=== PATIENT | female | born 1965 | race Caucasian/White ===

== ENCOUNTER 2018-07-03 10:15 | Outpatient (CLI) | payer OTHER, SELFPAY ==
[2018-07-03 13:10] LABS: Abs Immature Grans 0.02 k/cumm (0.0-0.09); Absolute Basophil Count 0.01 k/cumm (0.0-0.2); Absolute Eosinophil Count 0.01 k/cumm (0.0-0.7); Absolute Lymphocyte Count 2.05 k/cumm (1.2-3.4); Absolute Monocyte Count 0.69 k/cumm (0.11-0.7); Absolute Neutrophil Count 4.98 k/cumm (1.2-6.7); Basophils % 0.1; Eosinophils % 0.1; HCT 40.4 % (36.0-46.0); HGB 13.1 g/dL (12.0-15.5); Immature Grans % 0.3; Lymphocytes % 26.4; Mean Corp. HGB Concentration 32.4 g/dL (32.0-36.0); Mean Corpuscular Hemoglobin 27.8 pg (27.0-33.0); Mean Corpuscular Volume 85.8 fL (80-95); Monocytes % 8.9; Neutrophils % 64.2; Platelet Count 348 x1000/uL (130-400); RBC 4.71 m/cumm (4.00-5.20); White Blood Cell Count 7.76 k/cumm (4.4-10.8)
[2018-07-03 13:35] LABS: ALT 35 U/L (12-78); AST 21 U/L (15-37); Albumin 3.7 g/dL (3.4-5.0); Alkaline Phosphatase 76 U/L (46-116); Anion Gap 9.2 mmol/L (3-11); BUN 12 mg/dL (7-18); Bilirubin, Total 0.8 mg/dL (0.2-1.0); CO2 27.8 mmol/L (21.0-32.0); Calcium 8.9 mg/dL (8.5-10.1); Chloride 103 mmol/L (98-107); Glucose 93 mg/dL (70-100); Potassium 4.6 mmol/L (3.5-5.1); Sodium 140 mmol/L (136-145); TSH (W/Ref FT4) 1.48 uIU/mL (0.358-3.74); Total Protein 7.4 g/dL (6.4-8.2)
== END 2018-07-03 10:35 ==
PROVIDERS: PCP Emergency Medicine; Visit Provider Internal Medicine
DX: D64.9 Anemia, unspecified (principal); R05 Cough; R00.0 Tachycardia, unspecified
CPT/HCPCS: 36415; 80053; 84443; 85025

== ENCOUNTER 2018-07-05 00:54 | Outpatient (CLI) | payer OTHER, SELFPAY ==
--- NOTE | 2018-07-05 07:59 | DI.RAD_ITS ---
SYMPTOMS/DIAGNOSIS: COUGH, R05 PA AND LATERAL CHEST: The lungs are well expanded and free of infiltrate. There is no pleural effusion. The heart is not enlarged. The hilar structures, mediastinum and tracheal air column are intact. A prominent dextrorotoscoliosis involving the mid and lower dorsal spine is incidentally noted. SUMMARY: There is no evidence of acute cardiopulmonary disease.
== END 2018-07-05 01:14 ==
PROVIDERS: PCP Emergency Medicine; Visit Provider Internal Medicine
DX: R05 Cough (principal)
CPT/HCPCS: 71046

== ENCOUNTER 2019-02-01 15:00 | Outpatient (CLI) | payer OTHER, SELFPAY ==
--- NOTE | 2019-02-01 15:15 | DI.RAD_ITS ---
SYMPTOMS/DIAGNOSIS: PERSISTENT, CHRONIC COUGH X 5 WEEKS, WORSENING, NONPRODUCTIVE, NONSMOKER, R05 PA AND LATERAL CHEST: The heart is normal in size. The lungs are clear. The mediastinal structures and pleura appear intact. Note is made of a biconvex thoracolumbar scoliosis. CONCLUSION: Normal chest.
== END 2019-02-01 15:20 ==
PROVIDERS: PCP Emergency Medicine; Visit Provider Family Medicine
DX: R05 Cough (principal)
CPT/HCPCS: 71046

== ENCOUNTER 2019-09-07 09:05 | Outpatient (REF) | payer OTHER, SELFPAY ==
--- NOTE | 2019-09-07 08:40 | PAPFT_PTH ---
PATIENT: Mirtha Gaona LOC: [facility] U#:[id number] AGE/SX: 54/F ROOM: RE09/07/[address]: ИВАН Cespedes : 1965 BED: DIS: 09/07/2019 SPEC #: [id number] RECD: 09/07/19 12:48 STATUS: DARREN REQ #: [id number] JACQUELINE: 09/07/19 08:[address]: Veronica Barriga DEPT: [facility] Cytology RECD BY: Traci Clay ENTERED: 09/07/19 12:48 SP TYPE: PAPFT SAMRA DR: Jagdeep Arriaza, Tissues: 1 - CX/ENDOCX FOR PAP SMEARS Procedures: PAP THIN PREP/UVM Screening HPV DNA PROBE Comments: [id number]
== END 2019-09-07 09:25 ==
LOC: LBN 09:05
PROVIDERS: PCP Emergency Medicine; Visit Provider Nurse Practitioner Family
DX: Z12.4 Encounter for screening for malignant neoplasm of cervix (principal)
CPT/HCPCS: 88142; 87624

== ENCOUNTER 2019-09-24 12:37 | Outpatient (CLI) | payer OTHER, SELFPAY ==
[2019-09-24 13:43] LABS: HCT 40.7 % (36.0-46.0); HGB 13.3 g/dL (12.0-15.5); Mean Corp. HGB Concentration 32.7 g/dL (32.0-36.0); Mean Corpuscular Hemoglobin 27.7 pg (27.0-33.0); Mean Corpuscular Volume 84.8 fL (80-95); Mean Platelet Volume 9.1 fL (8.0-11.0); Platelet Count 408 x1000/uL (130-400); RBC Distribution Width 14.3 % (11.7-14.6); White Blood Cell Count 11.39 k/cumm (4.4-10.8)
[2019-09-24 14:47] LABS: ESR 26 mm/hr (0-30)
[2019-09-25 14:48] LABS: C-Reactive Protein 1.14 mg/dL (0.0-0.3)
== END 2019-09-24 12:57 ==
PROVIDERS: PCP Emergency Medicine; Visit Provider Orthopaedic Surgery
DX: Z96.651 Presence of right artificial knee joint (principal); Z47.1 Aftercare following joint replacement surgery
CPT/HCPCS: 36415; 85027; 85652; 86140

== ENCOUNTER 2020-01-25 09:06 | Outpatient (CLI) | payer OTHER, SELFPAY ==
[2020-01-26 15:51] LABS: COVID-19 RT-PCR UVMMC Result Negative (Negative)
== END 2020-01-25 09:26 ==
PROVIDERS: PCP Emergency Medicine; Visit Provider Student in an Organized Health Care Education/Training Program
DX: Z11.59 Encounter for screening for other viral diseases (principal); Z01.818 Encounter for other preprocedural examination
CPT/HCPCS: U0003

== ENCOUNTER 2020-01-30 07:33 | Day surgery (SDC) | payer OTHER, SELFPAY ==
--- NOTE | 2020-01-29 22:20 | W.PREOPHP ---
Date of service: 01/30/20 Assessment and Plan Assessment and plan (1) Status post right knee replacement: Status: Chronic Assessment and plan: Plan: Patient's test for Covid-19 on 01/25/20 was negative. Reports she has remained in quarantine since being tested; denies any contact with COVID-19 positive persons. Educated patient on surgery covering surgical technique, recovery process, benefits and risks including but not limited to risk of infection, blood clot, damage to soft tissue/blood vessels/nerves in detail. After discussion patient gives verbal understanding of risks and elects to proceed with scheduling surgery. Patient had opportunity to have questions answered to their satisfaction. They will contact office if issues arise. Patient will continue to be scheduled for right knee arthroscopy with lysis of adhesions and manipulation under associated procedures with Dr. Bernard. Patient is interested in having a left knee injection at the same time. History of Present Illness Narrative: Ms. Gaona is a 54-year-old female presents for right knee arthroscopic synovectomy with manipulation and associated procedures. Patient is status post right total knee replacement approximately 5 years ago. Unfortunately, she has continued to have discomfort as well as restricted motion. Patient's work-up completed by [facility] was negative for signs of infection when tested via Synovasure; additionally, as per her previous orthopedic clinic notes no abnormalities were noted on bone scan. Due to her continued pain and restricted motion which limits her activity, she was offered surgical intervention and elected to proceed. Additionally, her left knee has been bothering her for numerous months. She has previously received a Depo-Medrol injection which did not provide relief. She is interested in an alternative knee injection today. Pertinent Surgical Information Denies any known cardiac or pulmonary issues. Denies any previous complications from anesthesia or surgery Review of Systems Cardiovascular Cardiovascular: Denies chest pain and Denies dyspnea Respiratory Respiratory: Denies cough and Denies dyspnea [facility] Medical History (Updated 01/24/20 @ 10:58 by Kylie Romeo RN) Allergic rhinitis (Chronic) Seasonal rhinoconjunctivitis Cervical herniated disc (Chronic 08/20/15) Herpes (Chronic 09/28/17) History of skin cancer (Acute) Hypothyroid (Chronic 08/09/16) Idiopathic scoliosis (Chronic) Migraine (Chronic) Obesity (Chronic) Psoriasis (Chronic) Seborrheic dermatitis of scalp (Chronic 08/21/18) Sleep apnea (Chronic 10/18/14) CPAP Surgical History Arthroplasty of knee 2004; lateral release and chondromalacia patella. 09/02/14; Total right knee Extraction of cataract (~2012) JAW SURGERY Ligation of fallopian tube Status post right knee replacement (Chronic 05/09/15) Family History (Updated 01/29/20 @ 10:15 by Haroon Arriola) Mother No problems noted. Father , 72 Diabetes Essential hypertension CAD (coronary artery disease) Heart disease Hyperlipidemia Sister Hyperlipidemia Brother No problems noted. Maternal Grandfather , 59 Essential hypertension Brain cancer Paternal Grandfather , 84 Diabetes Maternal Grandmother , 90 Essential hypertension Eye cancer Stroke Paternal Grandmother , 83 No problems noted. Son Asthma Daughter No problems noted. Social History (Updated 01/29/20 @ 10:14 by Haroon Arriola) Smoking/Tobacco Use Status: Never Second Hand Exposure: No Alcohol Intake: former Drug use: Never Substance use type: does not use Caregiver/Support person: No Household members: spouse Housing: house Communication Needs: None Do you need help understanding health information?: Never Pets and animals: No Sexually active: Yes Do you think of yourself as: straight/heterosexual Current gender identity: female What is your relationship status?: How often do you talk on the phone with friends or family?: three or more times per week How often do you get together with friends or relatives?: once per week How often do you attend taoism or cheondoism services?: 1-3 times per year Do you belong to any clubs or organized social groups?: no Panel score (0-1 are the most socially isolated patients): 2 What type of physical activity do you participate in: none Frequency: does not exercise Sada/Yarsani: Restoration Special sada needs: No Seatbelt use: always Drive intox or ride w/intox pick up and delivery driver: No Do you feel safe at home: Yes Do you feel safe in your relationship?: Yes History History 3 Para 2 Hx # Term Pregnancies Multiple births Hx # Pregnancies Ectopic pregnancies AB induced Hx Number of Living Children AB spontaneous Meds Home Medications and Allergies Home Medications Medication Instructions Recorded Confirmed Type cetirizine 10 mg tablet 10 mg PO HS PRN tab 07/03/18 01/24/20 History fluocinonide-emollient 0.05 % 1 applic TOPICAL DAILY PRN gm 09/07/19 01/24/20 History topical cream levothyroxine 50 mcg tablet 50 mcg PO DAILY #90 tab-cap 12/24/19 01/24/20 Rx sumatriptan succinate 100 mg tablet 100 mg PO PRN #27 tab-cap 12/24/19 01/24/20 Rx olopatadine 0.1 % eye drops 2 drp OPHTHALMIC DAILY PRN #1 drp 01/25/20 01/25/20 Rx acetaminophen 500 mg PO Q6H PRN #60 tab 01/30/20 Rx hydrocodone-acetaminophen 1 tab PO Q4H PRN #12 tab 01/30/20 Rx ibuprofen 600 mg PO TID PRN #60 tab 01/30/20 Rx Allergies Allergy/AdvReac Type Severity Reaction Status Date / Time erythromycin base Allergy Intermediate TROUBLE Verified 01/30/20 07:49 BREATHING hydromorphone HCl Allergy Intermediate HIVES Verified 01/30/20 07:49 [From Dilaudid] cephalexin Allergy Unknown Verified 01/30/20 07:49 chlordiazepoxide Allergy Unknown Verified 01/30/20 07:49 codeine phosphate Allergy Unknown HIVES Verified 01/30/20 07:49 [From Cheratussin AC] guaifenesin Allergy Unknown HIVES Verified 01/30/20 07:49 [From Cheratussin AC] morphine AdvReac Severe VOMITING Verified 01/30/20 07:49 WALNUTS Allergy Severe DIFFICULTY Uncoded 01/30/20 07:49 BREATHING Exam Const General: cooperative, healthy appearing and no acute distress Resp Effort & Inspection: normal respiratory effort, able to speak in complete sentences and no cough Auscultation: clear to auscultation bilaterally, no rales, no rhonchi and no wheezes Cardio Heart Sounds: S1 normal, S2 normal and no murmurs
--- NOTE | 2020-01-30 07:07 | W.PM.DSUDISC ---
Discharge Plan Disposition Patient Disposition: HOME Condition: Good Discharge Details Reason For Visit: ARTHROFIBROSIS (R) KNEE Attending Provider: Michel Bernard Primary Care Provider: Jagdeep Arriaza Home Meds and New Rx's Prescriptions: New hydrocodone-acetaminophen 5-325 mg tablet 1 tab PO Q4H PRN (Reason: pain) Qty: 12 RF: 0 acetaminophen 500 mg tablet 500 mg PO Q6H PRN (Reason: pain) Qty: 60 RF: 3 ibuprofen 600 mg tablet 600 mg PO TID PRNQty: 60 RF: 3 Continued cetirizine [Zyrtec] 10 mg tablet 10 mg PO HS PRNRF: 0 fluocinonide-emollient [Fluocinonide-E] 0.05 % cream 1 applic Topical DAILY PRNRF: 0 olopatadine 0.1 % drops 2 drp Ophthalmic DAILY PRN Qty: 1 RF: 2 sumatriptan succinate [Imitrex] 100 mg tablet 100 mg PO PRN Qty: 27 RF: 4 levothyroxine [Synthroid] 50 mcg tablet 50 mcg PO DAILY Qty: 90 RF: 3 No Action Advil Cold and Sinus 30-200 mg Capsule 2 cap PO RF: 0 Discharge Instructions Additional Instructions: You should call [facility] to set up PT appointment. Stand Alone Forms: [facility] Knee Arthroscopy Referrals: [facility] [Provider Group] (s/p arthroscopic synovectomy and manipulation. As Soon As Possible. Thanks.) Michel Bernard MD [ [facility] STAFF PHYSICIAN] - Equipment/Supplies: Partial Weight Bearing Crutches Activity:: Activity as Tolerated Remove Dressings/Wound Care:: 72 hours Shower/Bathe:: 72 hours Diet:: As Tolerated Discharge Orders Discharge Orders: Discharge Order (Routine); Ordered 01/30/20 Ordered By: Michel Bernard DS: Diagnosis Discharge Diagnosis (1) Status post right knee replacement: Status: Chronic
[2020-01-30] MEDS: Lactated Ringers 1,000 ML 80 ML IV (08:00)
[2020-01-30 08:26] VITALS: BP 127/70; PULSE 91; RESP 18; TEMP 36.5; O2SAT 96
[2020-01-30] MEDS: CLINDAMYCIN 600 MG/50 ML BAG 100 MG IVPB (09:31)
[2020-01-30] MEDS: Hylan G-F 20 48 MG/6 ML SYR IU (10:06)
[2020-01-30] MEDS: Bupivacaine 0.5% Pres-Free 30 ML VIAL (10:55)
[2020-01-30 11:35] VITALS: BP 111/72; PULSE 75; RESP 20; TEMP 36; O2SAT 100
[2020-01-30] MEDS: HYDROcodone 5/Acetaminophen 325 TAB PO (12:16)
[2020-01-30 12:43] VITALS: BP 121/68; PULSE 83; RESP 20; TEMP 36.2; O2SAT 98
--- NOTE | 2020-01-30 19:49 | ROE_ITS ---
Date of service: 01/30/20 Time of Service: 11:49 Operative Note Operative Note DATE OF PROCEDURE: 01/30/20 PRE-OP DIAGNOSIS: Right knee arthrofibrosis status post TKA, left knee osteoarthritis POST-OP DIAGNOSIS: same PROCEDURE: Right knee arthroscopic synovectomy, adhesiolysis, with manipulation and left knee injection SURGEON: Michel Bernard ANESTHESIA: spinal ESTIMATED BLOOD LOSS: 5 PATHOLOGY: none sent TOURNIQUET TIME: 0 COMPLICATIONS: None Patient was transported to: same day Patient's condition: stable Indications: I have seen Mirtha in clinic for some right knee pain with restricted motion after knee replacement. Infection work-up was negative. Bone scan was negative for suspected loosening. However, she had continued restrict ed motion and pain. Nonoperative measures were exhausted but disability and pain persisted. Given the restricted motion as a possible source of her pain, I offered an arthroscopic synovectomy with manipulation. I discussed the surgery in detail with the patient. I reviewed the risks of the procedure to include, but not limited to, bleeding, infection, pain, stiffness, damage to nerves or vessels, recurrence, blood clot. Despite these risks, the patient elected to proceed. Findings: A diagnostic arthroscopy was performed with the following findings: Suprapatellar Pouch: Notable inflammatory changes throughout, some scarring between the distal femur anteriorly and the undersurface of the quadriceps tendon, no loose bodies Medial Compartment: Notable scarring with interposition of synovium between the femur and polyethylene, and the interface between the metal tibia and bone was inspected and did not show any gross loosening Lateral Compartment: Notable scarring but no interposition on no gross loosening between the components and bone Patellofemoral Compartment: Significant scarring around the patella with some attachment of the patella to medial lateral synovium restricting motion, no apparent patellar maltracking Procedure Description: Mirtha was greeted in the preoperative holding area where the correct side was identified and marked. The consent was reviewed with the patient and signed. The history and physical was updated. All questions were answered. She was taken back to the operating room. A spinal anesthetic was administered. She was then placed into the supine position on the operating room table. All bony prominences were well padded. Prophylactic antibiotics in the form of clindamycin were administered. A timeout to confirm correct identity, side and site, procedure, allergies, anesthesia, and medical concerns was performed. The left knee was identified as the injection site. The superolateral border of the patella was identified and marked. The skin was prepped with alcohol. The knee joint was entered without difficulty and the injection, consisting of 48mg of Synvisc 1 and 4cc of 0.5% Bupivicaine, was injected without resistance. The patient tolerated the procedure well and the injection site was dressed with a Band-Aid. The right leg was then prepped with Chloraprep and draped in a standard fashion with stockinette and extremity drape. The leg was placed into a pneumatic leg quinonez, SPIDER2. A standard lateral portal was made at the lateral border of the patella tendon in line with the inferior pole of the patella, soft spot. The skin and deep tissue was incised sharply and the blunt trochar was inserted atraumatically. A diagnostic arthroscopy was performed and the findings are listed above. The suprapatellar pouch had notable inflammatory change throughout. The patellofemoral articulation showed some dense scarring around the patella attached to the medial lateral gutters but with [good tracking]. The lateral gutter had had notable scarring with dense synovitis inflammatory changes and the medial gutter had even more impressive scarring and synovitis with interposition of synovial tissue between the distal femur and polyethylene. The knee was brought into some valgus stress in extension to open the medial compartment. A medial portal was made, localized by a spinal needle. The portal was created with an #11 blade through skin and capsule under direct visualization. Using both a shaver and electrocautery I resected the synovium in this area focusing first on the interposed tissue and then working to establish the medial gutter and the anterior space between the patellar tendon and the implant. A probe was then inserted into the medial compartment. The medial compartment was fully inspected. The interface between the tibia and bone as well as the femur bone was inspected and showed no signs of gross loosening. The lateral compartment was fully inspected with the arthroscope and a probe. There is notable synovitis around the lateral compartment but no interposed tissue and no loose pieces of cement or foreign objects. A limited debridement was performed in this area. I then established a superolateral portal. This became a working portal and allow me to complete debridement of the lateral compartment and the reestablishment of the lateral gutter. I then turned attention to the patella. All the thickened scar tissue around patella was released with electrocautery. Remnant adhesions between the patella and the capsule were resected with a shaver and electrocautery. Once again, there is notable inflammatory changes throughout the knee. Lastly, attention was turned to the suprapatellar pouch. Using the electrocautery I released adhesions between the quadriceps mechanism and the anterior femur. The knee was thoroughly irrigated with the arthroscopic fluid on high flow and pressure. Inflow was stopped and excess fluid was removed. The wounds were closed with 4-0 Nylon. They were dressed with Xeroform, 4x4 gauze, ABD pad, Kerlix and an JONAS wrap. A cryo-cuff was applied. The patient tolerated the procedure well and was returned to the Same Day Surgery area in a stable condition suffering no known complication.
--- NOTE | 2020-02-05 11:22 | PDOC.ANES ---
Date of service: 02/05/20 Time of Service: 11:22 Anesthesia Note Report Anesthesia Note: I spoke to Teena to followup on her likely spinal headache. She is POD 5 after her TKA. She called last week with a complaint of a headache, worse when she sits up. She does have a history of migraines as well but states this is different. Benny spoke to her last week and they decided caffeine, hydration and conservative treatment was adequate. Today she does state that she had an episode of vomiting on Tuesday and has also had a migraine on top of this headache. She has been taking caffeine supplements and has been maintaining her hydration. Today she feels the headache is improving in intensity. She feels better when slightly reclined from an upright position. She denies any numbness/tingling in extremities. Due to these findings, we will continue conservative management to which the patient agrees and we will follow up at the end of the week to see if she continues to improve. She will call if symptoms worsen.
== END 2020-01-30 13:05 | disposition home or self-care (01) ==
LOC: SUR 07:34
PROVIDERS: PCP Emergency Medicine; Visit Provider Student in an Organized Health Care Education/Training Program
PROC: (CPT 29870; principal; 2020-01-30 09:45)
PROC: (CPT 29884; 2020-01-30 09:45)
DX: T84.092A Other mechanical complication of internal right knee prosthesis, initial encounter (principal); T84.84XA Pain due to internal orthopedic prosthetic devices, implants and grafts, initial encounter; M24.661 Ankylosis, right knee; M25.561 Pain in right knee
CPT/HCPCS: 29884; 29876; 20610; NC; J1885; J2250; J3490

== ENCOUNTER 2020-01-30 08:34 | Outpatient (REF) | payer OTHER, SELFPAY ==
[2020-01-30 09:26] LABS: Hemoglobin A1C 5.9 % (3.8-5.6)
[2020-01-30 09:33] LABS: TSH 2.53 uIU/mL (0.36-3.74)
== END 2020-01-30 08:54 ==
LOC: LBN 08:34
PROVIDERS: PCP Emergency Medicine; Visit Provider Emergency Medicine
DX: E03.9 Hypothyroidism, unspecified (principal); E66.9 Obesity, unspecified
CPT/HCPCS: 83036; 84443

== ENCOUNTER 2020-06-12 13:42 | Outpatient (CLI) | payer OTHER, SELFPAY ==
--- NOTE | 2020-06-12 13:15 | DI.RAD_ITS ---
EXAM: XR STANDING ALIGNMENT CLINICAL HISTORY: preop. TECHNIQUE: 2D digital imaging was performed. COMPARISON: No exams were available for comparison FINDINGS: The patient has a right total knee replacement. Moderately severe degenerative changes are seen in t he left knee characterized by joint space narrowing and periarticular spurring. The findings are mos t marked in the medial joint compartment. The hips are well maintained. The ankles are well maintai selena. No significant leg length discrepancy is noted. IMPRESSION: Moderately severe degenerative changes of the left knee. DATA REPOSITORY: RADIATION DOSE DELIVERED:
== END 2020-06-12 14:02 ==
PROVIDERS: PCP Emergency Medicine; Referring Provider Emergency Medicine; Visit Provider Physician Assistant Surgical
DX: M17.12 Unilateral primary osteoarthritis, left knee (principal); Z96.651 Presence of right artificial knee joint
CPT/HCPCS: 77073

== ENCOUNTER 2020-06-13 01:56 | Outpatient (CLI) | payer OTHER, SELFPAY ==
[2020-06-13 14:41] LABS: HCT 42.5 % (36.0-46.0); HGB 13.6 g/dL (11.2-15.7); MCH 27.6 pg (27.0-33.0); MCV 86.4 fL (80-95); MPV 9.2 fL (8.0-11.0); Platelet Count 387 10^3/uL (130-400); RBC 4.92 10^6/uL (3.93-5.22); RDW 14.2 % (11.7-14.6); WBC 11.12 10^3/uL (4.4-10.8)
[2020-06-13 16:37] LABS: Anion Gap 10.6 mmol/L (3-11); BUN 16 mg/dL (7-18); CO2 26.4 mmol/L (21.0-32.0); CREATININE 0.75 mg/dL (0.55-1.02); Calcium 9.4 mg/dL (8.5-10.1); Chloride 104 mmol/L (98-107); Glucose 81 mg/dL (74-106); Potassium 4.3 mmol/L (3.5-5.1); Sodium 141 mmol/L (136-145)
[2020-06-15 02:22] LABS: COVID-19 RT-PCR Result NEGATIVE (Negative)
== END 2020-06-13 02:16 ==
PROVIDERS: PCP Emergency Medicine; Referring Provider Student in an Organized Health Care Education/Training Program; Visit Provider Student in an Organized Health Care Education/Training Program
DX: M17.12 Unilateral primary osteoarthritis, left knee (principal)
CPT/HCPCS: 36415; 80048; 85027; U0003

== ENCOUNTER 2020-06-18 10:15 | Observation (INO) | payer OTHER, SELFPAY ==
[2020-06-18] VITALS (18 sets, daily range): BP systolic 103–140; BP diastolic 69–118; PULSE 71–89; RESP 12–20; TEMP 36.5–36.7; O2SAT 20–97
[2020-06-18] MEDS: Acetaminophen 500 MG TAB 1000 MG PO ×2 (11:07→14:57)
[2020-06-18] MEDS: Celecoxib 200 MG CAP 400 MG PO (11:07)
[2020-06-18] MEDS: Gabapentin 300 MG CAP PO (11:07)
[2020-06-18] MEDS: Lactated Ringers 1,000 ML 80 ML IV ×2 (11:20→15:13)
--- NOTE | 2020-06-18 12:00 | DSE_ITS ---
DS: Diagnosis Discharge Diagnosis (1) Primary osteoarthritis of left knee: Status: Acute Discharge Plan Disposition Patient Disposition: HOME Condition: Good Discharge Details Reason For Visit: L KNEE TOTAL Admit Date/Time: 06/18/20 10:15 Admit Provider: Michel Bernard Attending Provider: Michel Bernard Primary Care Provider: Jagdeep Arriaza Hospital Course Hospital Course: Patient was admitted to the medical/surgical floor following the procedure. The surgery was tolerated well without any notable medical, surgical, or anesthetic complications. Mobilization began postoperatively. She was voiding spontaneously. Vitals were stable. Physical therapy worked with the patient and was cleared for discharge home. No acute medical issues. Pain was controlled on oral regimen. Home Meds and New Rx's Prescriptions: New aspirin 81 mg tablet,delayed release (DR/EC) 81 mg PO BID Qty: 60 RF: 0 acetaminophen 500 mg tablet 1,000 mg PO Q8H PRN (Reason: pain) Qty: 90 RF: 3 pantoprazole 40 mg tablet,delayed release (DR/EC) 40 mg PO DAILY Qty: 30 RF: 0 docusate sodium [Colace] 100 mg capsule 100 mg PO BID PRNQty: 10 RF: 0 gabapentin 300 mg capsule 300 mg PO QHS Qty: 7 RF: 0 ibuprofen 600 mg tablet 600 mg PO TID PRNQty: 90 RF: 3 oxycodone 5 mg tablet 5 mg PO Q4H Qty: 18 RF: 0 Continued cetirizine [Zyrtec] 10 mg tablet 10 mg PO HS PRNRF: 0 olopatadine 0.1 % drops 2 drp Ophthalmic DAILY PRN Qty: 1 RF: 2 sumatriptan succinate [Imitrex] 100 mg tablet 100 mg PO PRN Qty: 27 RF: 4 levothyroxine [Synthroid] 50 mcg tablet 50 mcg PO DAILY Qty: 90 RF: 3 fluocinonide-emollient [Fluocinonide-E] 0.05 % cream 1 applic Topical DAILY PRN (Reason: rash) Qty: 30 RF: 2 Advil Cold and Sinus 30-200 mg Capsule 2 cap PO DAILY PRNRF: 0 Discontinued acetaminophen 500 mg tablet 500 mg PO Q6H PRN (Reason: pain) Qty: 60 RF: 3 ibuprofen 600 mg tablet 600 mg PO TID PRNQty: 60 RF: 3 Discharge Instructions Additional Instructions: Dr. Bernard?s Total Knee Discharge Instructions Activity: The most important activity is to walk. You should try to take short walks a few times a day. It is important that when resting you work on keeping the knee straight. Avoid putting a pillow behind the knee as this will en courage flexion. Work on range of motion exercises as provided by Physical Therapy and the preoperative booklet. - Start outpatient physical therapy within 2 weeks. - You should wear the TONI hose on both legs for 2 weeks. Dressing: Keep the surgical dressing (Mepilex) in place for at least one week. If you went home on the surgical day, you should remove the JONAS wrap on the second day and then apply the TONI hose. The dressing may get wet after 3 days but avoid soaking the dressing. If it gets wet, just lightly pat dry. Most patient prefer to cover with ClingWrap or Saran Wrap to keep the dressing dry. After the first week, the dressing may be removed and replaced with light gauze and tape or nothing. Medications: - You should take Tylenol and anti-inflammatory Ibuprofen as your primary pain control medications - You have been prescribed a stronger pain medication Oxycodone for breakthrough pain, take as needed as prescribed. - You have also been prescribed a stomach acid reduction agent Pantoprozole to help reduce stomach acid and reflux. - You will be taking Aspirin 81mg twice a day for DVT prevention unless instruct ed otherwise. - You also have Gabapentin for nerve pain and nighttime restlessness. - If you have constipation you should take Colace or Miralax (both [id number]). It takes most people 3-4 days to have a bowel movement. Follow-up: 2 weeks. You should also call physical therapy to work on scheduling outpatient therapy sessions which can begin at 2 weeks. If you have any acute concerns or questions, please do not hesitate to contact the office at [phone]. You may contact Dr. Bernard with any questions after hours through the hospital at [phone] or on his cell phone at [phone]. Referrals: Michel Bernard MD [ [facility] STAFF PHYSICIAN] - Activity:: Activity as Tolerated Equipment/Supplies:: Walker Diet:: As Tolerated Discharge Orders Discharge Orders: Discharge Order (Routine); Ordered 06/18/20 Ordered By: Michel Bernard DS: Summary Status at Discharge Functional status at discharge: uses cane/walker Overall status at discharge: patient is progressing back to baseline Mental Status: mental status grossly normal Speech and Movement: speech and movement normal Mood: congruent mood Affect: normal affect Exam Psych Mental Status: mental status grossly normal Speech and Movement: speech and movement normal Mood: congruent mood Affect: normal affect DS: Data Vitals/I&O Vitals and I&O: Vital Signs Temperature 36.6 C 06/18/20 10:33 Pulse 89 06/18/20 10:33 Pulse Rhythm Regular 06/18/20 10:33 Respiratory Rate 20 06/18/20 10:33 Respiratory Effort 06/18/20 10:33 Blood Pressure 122/75 06/18/20 10:33 Pulse Oximetry 20 L 06/18/20 10:33 Oxygen Delivery Method Room Air 06/18/20 10:33 Oxygen Flow Rate 0 06/18/20 10:33 Pain Level 2 06/18/20 10:33 Intake & Output 06/17/20 06/18/20 06/18/20 23:59 11:59 23:59 Weight 122.8 kg [facility] Medical History Allergic rhinitis Seasonal rhinoconjunctivitis Cervical herniated disc (08/20/15) Elevated blood sugar Herpes (09/28/17) History of skin cancer Hypothyroid (08/09/16) Idiopathic scoliosis Migraine Obesity Psoriasis Seborrheic dermatitis of scalp (05/09/18) Sleep apnea (10/18/14) CPAP Surgical History Arthroplasty of knee 2004; lateral release and chondromalacia patella. 09/02/14; Total right knee Extraction of cataract (~2012) JAW SURGERY Ligation of fallopian tube Status post right knee replacement (05/09/15) S/P arthroscopic synovectomy: 01/30/2020 Family History Mother No problems noted. Father , 72 Diabetes Essential hypertension CAD (coronary artery disease) Heart disease Hyperlipidemia Sister Hyperlipidemia Brother No problems noted. Maternal Grandfather , 59 Essential hypertension Brain cancer Paternal Grandfather , 84 Diabetes Maternal Grandmother , 90 Essential hypertension Eye cancer Stroke Paternal Grandmother , 83 No problems noted. Son Asthma Daughter No problems noted. Social History Smoking/Tobacco Use Status: Never Second Hand Exposure: No Alcohol Intake: former Drug use: Never Substance use type: does not use Caregiver/Support person: No Household members: spouse Housing: house Communication Needs: None Do you need help understanding health information?: Never Pets and animals: No Sexually active: Yes Do you think of yourself as: straight/heterosexual Current gender identity: female What is your relationship status?: How often do you talk on the phone with friends or family?: three or more times per week How often do you get together with friends or relatives?: once per week How often do you attend hinduism or yarsanism services?: 1-3 times per year Do you belong to any clubs or organized social groups?: no Panel score (0-1 are the most socially isolated patients): 2 What type of physical activity do you participate in: none Frequency: does not exercise Sada/Jainism: Buddhism Special sada needs: No Seatbelt use: always Drive intox or ride w/intox driver material handler: No Do you feel safe at home: Yes Do you feel safe in your relationship?: Yes History History 3 Para 2 Hx # Term Pregnancies Multiple births Hx # Pregnancies Ectopic pregnancies AB induced Hx Number of Living Children AB spontaneous
[2020-06-18] MEDS: ceFAZolin 2 GM/50 ML BAG IVPB (12:10)
[2020-06-18] MEDS: Bupivacaine 0.25% Pres-Free 30 ML VIAL (12:40)
[2020-06-18] MEDS: Ketorolac 30 MG/ML VIAL (12:41)
[2020-06-18] MEDS: Normal Saline 20 ML VIAL (12:42)
--- NOTE | 2020-06-18 13:26 | ROE_ITS ---
Date of service: 06/18/20 Time of Service: 13:26 Operative Note Operative Note DATE OF PROCEDURE: 06/18/20 PRE-OP DIAGNOSIS: Left Knee Osteoarthritis POST-OP DIAGNOSIS: same PROCEDURE: Left Total Knee Replacement SURGEON: Michel Bernard CHILD AND FAMILY COUNSELOR: Mindy Garcia ANESTHESIA: regional and spinal ESTIMATED BLOOD LOSS: 200 PATHOLOGY: none sent TOURNIQUET TIME: 0 COMPLICATIONS: None Patient was transported to: PACU Patient's condition: stable Implants: 1. Depuy Attune Cementless Cruciate Retaining Femoral Component, Size 6 narrow 2. Depuy Attune Cementless Rotating Platform Tibial Component, Size 5 3. Depuy Attune 6x6mm CR/RP Poly 4. Depuy Attune Patellar Component, Size 35mm Indications: I have seen Mirtha in clinic for symptoms of knee arthritis, confirmed with radiographic findings. She has exhausted nonoperative methods and was having significant limitations in daily function and desired better function and less pain. I discussed the technical details of a knee replacement. I explained the risks of the procedure to include, but not limited to, bleeding, infection, pain, stiffness, fracture, damage to nerves and vessels, damage to muscles and tendons, loosening, need for repeat procedure, blood clot and cardiopulmonary demise. Despite these risks, Mirtha elected to proceed. Findings: There was significant signs of arthritis throughout the knee involving both medial and lateral aspects. Procedure Description: Teena was greeted in the preoperative holding area where the correct side was identified and marked. The consent was reviewed with the patient and signed. The history and physical was updated. All questions were answered. Preoperative medications were administered: Acetaminophen 1000mg, Celebrex 400mg, and Gabapentin 300mg. An adductor canal block was then administered by the anesthesia team in the PACU. Teena was taken back to the operating room. A spinal anesthestic was then administered. The patient was placed into the supine position on the operating room table. A nonsterile tourniquet was placed high onto the leg but only used for cementing. Posts were placed for positioning during the procedure. All bony prominences were well padded. Prophylactic antibiotics in the form of Cefazolin were administered. 1g of Tranxemic Acid was given intravenously within 30 minutes of incision. The left leg was then prepped with Chloraprep and draped in a standard fashion with impervious stockinette. A second prep with Chloraprep was performed prior to application of Iodine impregnated skin protection. A timeout to confirm correct identity, side and site, procedure, allergies, anesthesia, and medical concerns was performed. With the knee in some flexion, a midline incision was made overlying the knee. Full thickness skin flaps were raised once the extensor mechanism was encountered. These were raised medially and laterally. Any bleeding was controlled with electrocautery. Once the extensor mechanism was fully exposed, a medial parapatellar arthrotomy was performed in a flexed position. All bleeding from the arthrotomy and the geniculate arteries was coagulated. A medial subperiosteal peel was performed with electrocautery to the midcoronal plane. The fat pad was removed while keeping the patellar tendon protected. The anterior distal femur synovium was removed for later visualization. The ACL and PCL were resected and the anterior horn of the lateral meniscus was transected. The knee was then flexed with the patella everted. Large osteophytes from the tibia were removed. Using a step drill, and based on preoperative templating, the femoral canal was entered. This was done with a step drill without any difficulty. The intramedullary distal femoral cut guide was inserted, set to a 5 degree valgus cut and 9mm cut thickness. The distal femoral cut guide was then held in position and pinned. With the soft tissues protected, the distal cut was performed. This was passed over a few times to ensure a planar cut. I then turned attention to the tibia. The extramedullary guide was placed onto the leg. The distal aspect was slid medial to adjust for position of center of ankle and stay in line with shaft of the tibia. Approximately 3-5 degrees of posterior slope was kept in the proximal cutting guide. The center of the guide was aligned with the PCL. The stylus was used to assess cut thickness. The medial side, most involved side, was set for a 4mm cut. This was then held in position and pinned into place with 2 additional pins and a cross pin for stability. The medial and lateral collateral ligaments were protected and the cut was performed. With this completed, it was assessed and noted to be of appropriate dimensions. The guide was removed. A spacer block was inserted and the knee was brought into extension. The 6mm spacer block provided full extension, without hyperextension and with stability of both the medial and lateral collateral ligaments was assessed. The pins from the femur and the tibia were then removed. The distal femur was then sized. The anterior stylus was placed onto the lateral ridge of the anterior femur. This indicated a size 6 femur. The external rotation of the guide was adjusted to 3 degrees to match the epicondylar axis, perpendicular to Calvert?s line. The 4-in-1 cutting guide was the placed. The posterior medial femur cut was evaluated and appeared of good thickness. The spacer block was inserted underneath the cutting guide and stability was confirmed in 90 degrees of flexion. An vargas wing was used to confirm appropriate position of the anterior cut to avoid notching. This cutting guide was ensured to be flush on the cut surface and then pinned into place with headed pins. While protecting the soft tissues, quad tendon, and collateral ligaments, the anterior and posterior cuts were performed with a saw. The central two pins were removed and the posterior and anterior chamfers were cut next. The notch-cutting guide was placed. This was pinned to lateralize the femoral component as much as possible while keeping it flush on the cut surface. This was then pinned into position. A reciprocating saw was used to make the notch cut. A rasp smoothed the cut surfaces. The medial and lateral menisci were removed. A trial femoral component was then inserted, impacted down to the cut surfaces, and the lug holes were drilled. A provisional trial tibial component was placed and the knee was brought through range of motion. There was noted to be excellent extension and flexion. There was no significant instability. The patella was tracking without thumbs. A size 6mm polyethylene component provided the best range of motion and stability with less than 2mm gapping with medial and lateral stress and full extension without significant hyperextension. The tibial cut surface was fully exposed. The tibia was then sized as a 5. The tibia had been previously marked during trialing to correspond to the center of the tibial component to help with rotation. The trial was aligned to this junie, approximately rotated to the medial 1/3rd of the tibial tubercle. The trial was pinned into place. The tibia was prepared with a reamer and a keel punch and lug holes. The knee was then brought into extension and the patella was measured as 25mm. Using the patellar clamp and cut guide, this was resected to a flat surface with at least 13mm of thickness remaining. The size 35 patella fit the best. This was oriented and then clamped into position. The lugs were drilled. The trial components were removed. The final components were opened on the back table. The periosteal and capsular tissues, especially posteriorly, around the knee were then systematically injected with a periarticular cocktail consisting of 50cc 0.25% Marcaine, 30mg Ketorolac, 20cc of Exparal and 50cc of injectable saline. The knee was thoroughly irrigated with a pulse lavage and dried. I rrisept was also used to irrigate the tissues. On the back table, with the implants opened, the cement was mixed. One batche of high viscosity cement were prepared with vacuum assistance. After the cement was ready a small amount was placed on the cut surface of the patella and the patellar button was clamped into position and held. During this process attention was turned to the gutters of the knee and for all interfaces for any excess cement. While the cement was hardening, the cementless knee components were placed. Starting with the tibial component, the tibia was subluxed anteriorly and the lug holes of the component were lined up. The tibia was then impacted with an impactor and mallet until the tibial component was in contact with the tibia. The final polyethylene component was inserted. Then, the femoral component was inserted. The lug holes were aligned and the component was impacted into position. The knee was irrigated with Irrisept chlorhexadine solution. This was allowed to sit in the knee for 3 minutes. After the cement had finally cured, approximately 15min, the clamp was removed from the patella and the knee was taken through range of motion. The patella was tracking with a no-thumbs technique. The capsule was then reapproximated with a No. 1 Vicryl at multiple locations. The capsule was finally closed with a No. 2 Stratafix, barbed suture. The tourniquet was then released and the arthrotomy appeared watertight without significant bleeding. The second dosing of 1g TXA was started. Deep tissues were then reapproximated with 0 Vicryl and 2-0 Vicryl. The skin was closed with a running 3-0 Monocryl in a subcuticular fashion. This was reinforced with skin glue. A Mepilex silver dressing was applied along with a [id number] JONAS wrap. A CryoCuff was applied. Mirtha was transferred to the hospital bed without difficulty an suffering no apparent complication. She has a good prognosis. Physical therapy will start today and without restrictions, weight-bearing as tolerated. Aspirin 81mg BID will be used for DVT prophylaxis.
[2020-06-18] MEDS: fentaNYL 100 MCG/2 ML VIAL IVP ×3 (14:10→14:32)
[2020-06-18] MEDS: Ibuprofen 600 MG TAB PO (14:58)
[2020-06-18] MEDS: oxyCODONE 5 MG TAB PO (14:58)
--- NOTE | 2020-06-18 15:49 | IN_ITS ---
Date of service: 06/18/20 Time of Service: 15:49 PT Notes Visit Reasons: L KNEE TOTAL Physical Therapy Inpatient Initial Evaluation Date: 06/18/2020 Referring Doctor: Michel Bernard MD PT Orders: PT CONSULT: Status post Ortho surgery Precautions: Fall. Standard. WBAT on left LE. Patient Profile/Admitting Diagnosis: Teena is a 54-year-old female with primary unilateral osteoarthritis of the left knee and is status post left knee total arthroplasty on postoperative day 0. PMHX: Medical History Allergic rhinitis Seasonal rhinoconjunctivitis Cervical herniated disc (08/20/15) Elevated blood sugar Herpes (09/28/17) History of skin cancer Hypothyroid (08/09/16) Idiopathic scoliosis Migraine Obesity Psoriasis Seborrheic dermatitis of scalp (05/09/18) Sleep apnea (10/18/14) CPAP Surgical History Arthroplasty of knee 2004; lateral release and chondromalacia patella. 09/02/14; Total right knee Extraction of cataract (~2012) JAW SURGERY Ligation of fallopian tube Status post right knee replacement (05/09/15) S/P arthroscopic synovectomy: 01/30/2020 Social History/Home Situation: Lives with in a private home with 2 steps to enter with a rail on the right going up. She states that she has more steps to the bedroom of her house but she will be staying on the main floor while she recovers. Equipment Owned/DME: BIlateral axillary crutches Subjective: Pleasant and cooperative. Reports 6/10 pain in the L knee but agreeable to PT consult. Denies headache, chest pain, and lightheadedness. Objective: General Observation: Cryo/Cuff on left knee. Lior wrap to left knee. IV access in right UE. Mental Status: Alert and oriented x4 Pain: 6/10 in the left knee ROM: Right Upper Extremity: Shoulder Flexion WFL. Shoulder abduction WFL. Elbow flexion WFL. Wrist flexion WFL. Opening and closing of hand WFL. Left Upper Extremity: Shoulder Flexion WFL. Shoulder abduction WFL. Elbow flexion WFL. Wrist flexion WFL. Opening and closing of hand WFL. Right Lower Extremity: Hip flexion WFL. Hip abduction WFL. Knee flexion WFL. Ankle dorsiflexion WFL. Ankle plantarflexion WFL. Left Lower Extremity: Hip flexion WFL. Hip abduction WFL. Knee flexion 30 to 100 degrees. Knee extension -30 degrees. Ankle dorsiflexion WFL. Ankle plantarflexion WFL. Strength: Right Upper Extremity: Shoulder flexors 5/5. Shoulder abductors 5/5. Elbow flexors 5/5. Elbow extensors 5/5. Marketing Services Vice President strong. Left Upper Extremity: Shoulder flexors 5/5. Shoulder abductors 5/5. Elbow flexors 5/5. Elbow extensors 5/5. Marketing Services Vice President strong. Right Lower Extremity: Hip flexors 5/5. Hip abductors 5/5. Knee flexors 5/5. Knee extensors 5/5. Ankle dorsiflexors 5/5. Ankle plantarflexors 5/5. Left Lower Extremity:Hip flexors 4/5. Hip abductors 4/5. Knee flexors 3-/5. Knee extensors 3-/5. Ankle dorsiflexors 5/5. Ankle plantarflexors 5/5. Sensation: Intact as to pain and pressure on bilateral lower extremities. Bed Mobility/Transfers: Rolling supervision Supine to sit supervision Sit to supine supervision Sit to stand supervision Stand to sit supervision Bed to chair supervision Chair to bed supervision Gait: 120 feet +120 feet using front wheeled walker with standby assist demonstrating step through gait pattern. Reported better pain level towards the end. Up-and-down three 4 inch steps and four 6 inch steps while holding onto one rail and using a crutch on the other hand with contact-guard assist using step to gait pattern. Balance: Static Sitting: Normal Dynamic Sitting: Normal Static Standing: Fair Dynamic Standing: Fair Special Tests: Mobility Limitations Standardized Measure [facility]-PAC 6 clicks Basic Mobility Inpatient Short Form: Raw Score: 20 CMS Score: 36% deficit Informed Consent/Education: Patient instructed in purpose of PT consult and plan of care. Assessment: Teena requires use of a front wheeled walker to maximize independence with all mobility ADL performance, reduce fall risk, and minimize pain complaint in the left knee. Teena is a 54-year-old female with primary unilateral osteoarthritis of the left knee and is status post left knee total arthroplasty on postoperative day 0. Patient presents with clinical signs and symptoms consistent with current/admitting diagnoses that have resulted to mobility limitations, gait instability, generalized weakness, and impairment of motor control as demonstrated by the following impairment level findings: 1. Decreased strength to left knee major muscle groups 2. Impaired standing balance 3. Impaired activity tolerance 4. Limitation of joint range of motion in left knee Impairments are contributing to the following functional limitations: 1. Inability to safely ambulate without assistive device and physical assistance 2. Increase completion time for mobility ADL performance 3. Increased fall risk 4. Inability to negotiate steps alone safely Patient is assessed as a [id number] moderate complexity based on the following: History: 54-year-old female with impairment level findings, functional limitations, and past medical history as indicated above Examination: Demonstrable impairment in strength, balance, and mobility level with underlying impairments and functional limitations as documented above Presentation: Stable Decision Makin moderate complexity Goals: N/A. PT eval and 1 treatment session only. Plan of Care/Treatment Plan: N/A. PT eval and 1 treatment session only. DISCHARGE RECOMMENDATIONS: Home when medically cleared by orthopedic surgeon. May benefit from outpatient PT services to facilitate return to independent premorbid level. TREATMENT CODE/TIME: 38636 x 25 minutes, 29517 x 11 minutes beginning at 15:49 PM. Thank you for the opportunity to participate in the care of this patient. Lora Bagley PT, DPT, CLT [facility] [place], [place]
== END 2020-06-18 17:45 | disposition home or self-care (01) ==
LOC: PDS 13:34 → ICU 13:35
PROVIDERS: Admitting Provider Student in an Organized Health Care Education/Training Program; PCP Emergency Medicine; Visit Provider Student in an Organized Health Care Education/Training Program
PROC: 0SRD0J9 Replacement of Left Knee Joint with Synthetic Substitute, Cemented, Open Approach (ICD-10-PCS; CPT 27447; principal; 2020-06-18 12:45)
DX: M17.12 Unilateral primary osteoarthritis, left knee (principal); M25.562 Pain in left knee; Z96.652 Presence of left artificial knee joint; G89.18 Other acute postprocedural pain; G47.33 Obstructive sleep apnea (adult) (pediatric); E03.9 Hypothyroidism, unspecified
CPT/HCPCS: 27447; C1776; 76942; 97110; 97162; NC; G0378; J0690; J1100; J1885; J2250; J2405; J2704; J3010

== ENCOUNTER 2020-07-03 11:01 | Outpatient (CLI) | payer OTHER, SELFPAY ==
--- NOTE | 2020-07-03 10:30 | DI.RAD_ITS ---
EXAM: XR STANDING ALIGNMENT and XR knee LT 1 V CLINICAL HISTORY: 1st post op. TECHNIQUE: 2D digital imaging was performed. COMPARISON: CR XR STANDING ALIGNMENT from 06/12/2020 FINDINGS: The hips are well maintained. The patient has bilateral total knee replacements. The left total kne e arthroplasty is well maintained. No evidence of loosening is seen. The bones are intact. The ank les are well maintained. No significant leg length discrepancy is noted. IMPRESSION: Bilateral total knee arthroplasties. DATA REPOSITORY: RADIATION DOSE DELIVERED:
== END 2020-07-03 11:21 ==
PROVIDERS: PCP Emergency Medicine; Referring Provider Emergency Medicine; Visit Provider Student in an Organized Health Care Education/Training Program
DX: Z96.653 Presence of artificial knee joint, bilateral
CPT/HCPCS: 73560; 77073

== ENCOUNTER 2020-09-17 01:45 | Outpatient (CLI) | payer OTHER, SELFPAY ==
--- NOTE | 2020-09-17 08:00 | DI.MRI_ITS ---
EXAM: MR LOWER JOINT LT WO CLINICAL HISTORY: CONTINUED HIP PAIN,GREATER TROCHANTERIC BURSITIS LT HIP,M70.62. TECHNIQUE: Multiplanar multisequence MRI was performed. COMPARISON: No exams were available for comparison FINDINGS: MR examination the hip was performed according to the usual protocol. The soft tissues of the pelvis are unremarkable. Normal appearance of uterus and adnexa, urinary tico dder, visualized bowel, and lymph nodes. No bony signal abnormality seen involving the hips or pelvis. Femoral heads and acetabula are well f ormed. There is trace free fluid in the hip joints bilaterally. No gross evidence of synovitis. Ligamentous structures of the hips appear intact. The musculature, tendons, and myotendinous junctio ns and tendinous insertions all show normal signal. Specifically there is no evidence of bursitis in volving the bursae of the greater trochanter of the left hip. IMPRESSION: Negative left hip MRI. No evidence of trochanteric bursitis or gluteal tendinosis or tendon tear.. DATA REPOSITORY:
--- NOTE | 2020-09-17 08:00 | DI.MRI_ITS ---
EXAM: MR LUMBAR SPINE WO INDICATION: LUMBAR PAIN,GREATER TROCHANTERIC BURSITIS,M70.62. COMPARISON: No exams were available for comparison TECHNIQUE: MR examination of the lumbosacral spine was performed according to the usual protocol. FINDINGS: No significant bony signal abnormality is seen. Intervertebral discs show normal signal. No signifi cant facet arthropathy identified. The conus medullaris appears intact. There is no evidence of a central canal spinal stenosis, or neural foraminal stenosis, in the lumbar region. Note is made of a tiny central disc herniation at L5-S1. There is no gross neural impingement. Janice lindsay of the intervertebral discs appear within normal limits throughout the lumbar spine. IMPRESSION: Tiny central disc herniation at L5-S1. No other significant findings.
== END 2020-09-17 02:05 ==
PROVIDERS: PCP Emergency Medicine; Visit Provider Student in an Organized Health Care Education/Training Program
DX: M51.27 Other intervertebral disc displacement, lumbosacral region (principal); M25.552 Pain in left hip
CPT/HCPCS: 73721; 72148

== ENCOUNTER 2020-10-17 01:22 | Outpatient (CLI) | payer OTHER, SELFPAY ==
[2020-10-18 11:57] LABS: COVID-19 RT-PCR UVMMC Result Negative (Negative)
== END 2020-10-17 01:42 ==
PROVIDERS: PCP Emergency Medicine; Visit Provider Student in an Organized Health Care Education/Training Program
DX: Z11.52 Encounter for screening for COVID-19 (principal); Z01.818 Encounter for other preprocedural examination
CPT/HCPCS: U0003

== ENCOUNTER 2020-10-21 09:31 | Day surgery (SDC) | payer OTHER, SELFPAY ==
[2020-10-21] VITALS (8 sets, daily range): BP systolic 99–127; BP diastolic 51–67; PULSE 78–96; RESP 14–20; TEMP 36.4–36.6; O2SAT 95–98
--- NOTE | 2020-10-21 09:40 | W.PM.DSUDISC ---
Discharge Plan Disposition Patient Disposition: HOME Condition: Good Discharge Details Reason For Visit: Arthrofibrosis of left TKA Attending Provider: Michel Bernard Primary Care Provider: Jagdeep Arriaza Home Meds and New Rx's Prescriptions: New acetaminophen 500 mg tablet 500 mg PO Q6H PRN (Reason: pain) Qty: 60 RF: 2 ibuprofen 600 mg tablet 600 mg PO TID PRN (Reason: pain) Qty: 60 RF: 2 Continued cetirizine [Zyrtec] 10 mg tablet 10 mg PO HS PRNRF: 0 olopatadine 0.1 % drops 2 drp Ophthalmic DAILY PRN Qty: 1 RF: 2 sumatriptan succinate [Imitrex] 100 mg tablet 100 mg PO PRN Qty: 27 RF: 4 levothyroxine [Synthroid] 50 mcg tablet 50 mcg PO DAILY Qty: 90 RF: 3 fluocinonide-emollient [Fluocinonide-E] 0.05 % cream 1 applic Topical DAILY PRN (Reason: rash) Qty: 30 RF: 2 alprazolam 0.5 mg tablet 0.5 mg PO ONCE PRN (Reason: claustrophobia) Qty: 2 RF: 0 Advil Cold and Sinus 30-200 mg Capsule 2 cap PO DAILY PRNRF: 0 Discontinued acetaminophen 500 mg tablet 1,000 mg PO Q8H PRN (Reason: pain) Qty: 90 RF: 3 ibuprofen 600 mg tablet 600 mg PO TID PRNQty: 90 RF: 3 Discharge Instructions Additional Instructions: Knee Manipulation Discharge Instructions Activity: You should begin moving as soon as possible. You may work on flexion but also equally maintain extension. You may bear weight as tolerated, using crutches only for support/comfort. You should apply ice to help with swelling and elevate when possible (especially in the first few days). Dressings: The knee dressing may come down after 48 hours. You may shower and get the wound wet at that time. You should keep the wounds covered with a bandaid until follow-up. Medications: - Rarely does this require any stronger pain medications. - Recommend to take up to 1000mg of Acetaminophen (Tylenol) and 600mg of Ibuprofen (Advil) every 8 hours as needed. These larger strength tablets were called in but you also may use zhig-ona-gutjldi. Follow-up: 7-10 days Referrals: Michel Bernard MD [ [facility] STAFF PHYSICIAN] - Equipment/Supplies: Partial Weight Bearing Crutches Activity:: Elevate Remove Dressings/Wound Care:: 48 hours Shower/Bathe:: 48 hours Diet:: As Tolerated Discharge Orders Discharge Orders: Discharge Order (Routine); Ordered 10/21/20 Ordered By: Chhaya Galan DS: Diagnosis Discharge Diagnosis (1) Arthrofibrosis of total knee replacement: Status: Acute (2) History of total left knee replacement: Status: Acute
[2020-10-21] MEDS: Lactated Ringers 1,000 ML 80 ML IV (10:20)
[2020-10-21] MEDS: Acetaminophen 500 MG TAB 1000 MG PO (10:40)
[2020-10-21] MEDS: Celecoxib 200 MG CAP 400 MG PO (10:40)
[2020-10-21] MEDS: Bupivacaine LIPOSOME/PF 133 MG/10 ML VIAL IJ (11:01)
[2020-10-21] MEDS: Bupivacaine 0.25% Pres-Free 30 ML VIAL ×2 (11:01→12:40)
[2020-10-21] MEDS: Lactated Ringers 1,000 ML 30 ML IV (11:50)
[2020-10-21] MEDS: ceFAZolin 2 GM/50 ML BAG IVPB (12:00)
[2020-10-21] MEDS: oxyCODONE 5 mg/Acetaminophen 325 mg TAB 1 TAB PO (14:36)
--- NOTE | 2020-10-21 22:30 | W.PM.OP ---
Date of service: 10/21/20 Time of Service: 12:44 Operative Note Operative Note DATE OF PROCEDURE: 10/21/20 PRE-OP DIAGNOSIS: Left Knee Arthrofibrosis s/p Replacement POST-OP DIAGNOSIS: same PROCEDURE: Left Knee Arthroscopic Synovectomy with Manipulation Under Anesthesia SURGEON: Michel Bernard ANESTHESIA: spinal ESTIMATED BLOOD LOSS: 5 PATHOLOGY: none sent TOURNIQUET TIME: 0 COMPLICATIONS: None Patient was transported to: PACU Patient's condition: stable Indications: Teena is a 55-year-old female who is s/p knee replacement. Despite diligent work with physical therapy there has been continued stiffness. To assist with mobility, I offered a arthroscopic synovectomy with manipulation under anesthesia. I discussed the risks of the procedure to include bleeding, pain, recurrent stiffness, fracture. Despite these risks, Teena elects to proceed. Findings: Preoperative flexion = 105 Postoperative flexion = 130 Preoperative extension = 5 Postoperative extension = 2 Procedure Description: The patient is agreed in the preoperative holding area. Identity was confirmed and the correct side was identified and marked. The consent was reviewed the patient and signed. History and physical was updated. Teena was taken back to the operating room. The left side was identified as the correct side. A timeout was performed for safe surgery. A spinal anesthetic was administered. The knee was then prepped with ChloraPrep. The left knee was draped in standard fashion for arthroscopy. A timeout was performed for safe surgery. Prophylactic antibiotics in the form of clindamycin were administered. Pre-manipulation range of motion was noted. A standard lateral arthroscopic portal was then made. Visualization was obtained within the knee without difficulty. There is some notable scarring seen mostly laterally. The suprapatellar space was not completely restricted from scar tissue. However, there was some notable scarring in this area. A superolateral portal was then made with spinal needle localization. From this point I use electrocautery wand to resect any of the scarring between the anterior femur and the underside the extensor mechanism until I was able to see clearly through to muscle. This was performed superiorly then superomedially and then superolaterally. I then continued through the lateral gutter removing any scar tissue against the implant to free up the tissues around the knee. I did this until is able to see the gutters and see the posterior aspect of the lateral femur as well as the articulation between the lateral femur and the polyethylene. I continued anterior laterally removing scar tissue from around the polyethylene and any interposed scar tissue was removed as well. 1 set was at the anterior knee I then established a medial portal with spinal needle localization. This allowed continued synovectomy through the anterior and then the medial compartment. Likewise I continue to work on the medial gutter so I was able to see around to the posterior side of the medial femoral component. Continue to resect any scar tissue in this area so I was able to see the border of the polyethylene. There was a small amount of scar tissue interposed between the femoral condyle and the polyethylene which was removed. Once again continuous resection superiorly around to the superior flange of the patella. Once in the space and then once again circumferentially resected scar tissue from around the patella. At this point the synovectomy was completed. Excess fluid was evacuated from the knee. Scope equipment was removed. A gentle manipulation was performed first into flexion using a very small lever arm and adding gentle and progressive pressure to the tibia. I was able to easily get the knee to about 130 or so degrees of flexion without significant effort. I did apply some gentle and progressive pressure but there was thigh calf impingement which limited any further progression of flexion. The leg was then brought into extension and gentle anterior posterior pressure was applied with a supported hand behind the proximal tibia and knee. This was brought back into flexion was once again manipulated with gentle and progressive pressure. The portal sites were closed with 3-0 nylon. The portal sites were then injected with 0.5% bupivacaine. The wounds were dressed with Xeroform, followed by 4 x 4's, ABD, Kerlix, and Lior wrap. Teena tolerated the procedure well. Teena was taken to the PACU in stable condition.
== END 2020-10-21 15:15 | disposition home or self-care (01) ==
PROVIDERS: PCP Emergency Medicine; Visit Provider Student in an Organized Health Care Education/Training Program
PROC: (CPT 29870; principal; 2020-10-21 13:45)
DX: T84.82XA Fibrosis due to internal orthopedic prosthetic devices, implants and grafts, initial encounter (principal); Z96.652 Presence of left artificial knee joint; M24.662 Ankylosis, left knee; G47.33 Obstructive sleep apnea (adult) (pediatric); G89.18 Other acute postprocedural pain
CPT/HCPCS: 29876; 27570; 76942; J0690; J1100; J2001; J2250; J2405

== ENCOUNTER 2021-02-17 08:20 | Outpatient (REF) | payer OTHER, SELFPAY ==
[2021-02-17 14:53] LABS: Hemoglobin A1C 5.7 % (<5.7)
[2021-02-17 14:55] LABS: Calculated LDL 109 mg/dL (<100); Cholesterol 171 mg/dL (<200); HDL Cholesterol 44 mg/dL (40-60); TSH 1.32 uIU/mL (0.36-3.74); Triglyceride 92 mg/dL (<150)
== END 2021-02-17 08:21 | disposition home or self-care (01) ==
LOC: LBN 08:20
PROVIDERS: PCP Emergency Medicine; Visit Provider Emergency Medicine
DX: E11.9 Type 2 diabetes mellitus without complications (principal); E66.9 Obesity, unspecified; E03.9 Hypothyroidism, unspecified
CPT/HCPCS: 80061; 83036; 84443

== ENCOUNTER 2021-06-08 09:35 | Outpatient (CLI) | payer OTHER, SELFPAY ==
--- NOTE | 2021-06-08 08:00 | DI.RAD_ITS ---
Exam(s) XR KNEE LT 2V AP,LAT EXAM: XR KNEE LT 2V AP,LAT CLINICAL HISTORY: annual f/u L TKA. TECHNIQUE: 2D digital imaging was performed. COMPARISON: CR XR KNEE LT 1V from 07/03/2020 FINDINGS: There is stable position alignment of the components of the prosthesis. No fracture or loosening jose david dent. No radiographic evidence of osteomyelitis. No prominent joint effusion. IMPRESSION: DATA REPOSITORY: RADIATION DOSE DELIVERED:
== END 2021-06-08 09:36 | disposition home or self-care (01) ==
LOC: DIORS 09:35
PROVIDERS: PCP Emergency Medicine; Referring Provider Emergency Medicine; Visit Provider Student in an Organized Health Care Education/Training Program
DX: Z96.652 Presence of left artificial knee joint (principal); Z98.890 Other specified postprocedural states
CPT/HCPCS: 73560

== ENCOUNTER 2021-11-05 01:14 | Outpatient (CLI) | payer OTHER, SELFPAY ==
--- NOTE | 2021-11-05 07:52 | DI.MAMMO_ITS ---
Exam(s) MAMMO SCREENING EXAM: MAMMO SCREENING CLINICAL HISTORY: screening,Z12.39 TECHNIQUE: Bilateral full field digital CC and MLO mammographic images were obtained with 3D tomosyn thesis and utilizing computer aided detection (CAD). COMPARISON: Available for comparison. FINDINGS: Masses/Architectural Distortion: None seen. Microcalcifications: No suspicious pleomorphic-type are seen. Skin Thickening/Nipple Retraction: None. IMPRESSION: 1. No significant interval change with no specific features of malignancy noted. 2. Unless there is more urgent need, screening mammography is recommended, as per [employer] guidelines. BI-RADS Category 1 - Negative Breast Density - Category B - Scattered areas of fibroglandular density Breast density category C or D implies that the patient has dense breast tissue. Dense breast tissue is very common and is not abnormal but dense breast tissue can make it harder to find cancer on a ma mmogram. Also, dense breast tissue may increase their breast cancer risk. This information about the result of the mammogram report was provided to the patient to raise their awareness. Use this report when you speak with the patient about their risks for breast cancer, which includes their family hist ory. At that time, you may recommend for more screening tests (Ultrasound or MRI) as they might be us eful based on their risk. A negative radiographic report should not delay biopsy if a dominant or clinically suspicious mass is present. Up to ten percent of cancers are not identified on mammography. A negative report may reinforce clinical impression. Adenosis and dense breasts may obscure an underlying neoplasm. False positive reports average 6 to 10%. Patient will receive a letter notifying them of these results.
== END 2021-11-05 01:34 ==
PROVIDERS: PCP Family Medicine; Visit Provider Nurse Practitioner Family
DX: Z12.31 Encounter for screening mammogram for malignant neoplasm of breast (principal)
CPT/HCPCS: 77063; 77067

== ENCOUNTER 2021-12-17 14:02 | Outpatient (CLI) | payer OTHER, SELFPAY ==
--- NOTE | 2021-12-17 14:45 | DI.RAD_ITS ---
Exam(s) XR CHEST 2V PA LATERAL EXAM: XR CHEST 2V PA LATERAL CLINICAL HISTORY: Chronic cough. R05.3 TECHNIQUE: 2D digital imaging was performed. COMPARISON: No exams were available for comparison FINDINGS: MEDIASTINUM: Normal. HEART: Normal. PULMONARY VASCULATURE: Normal. LUNGS: Clear. No visible emphysematous or fibrotic changes. PLEURAL SPACE: No pleural effusion or pneumothorax. BONE:Scoliosis. Mild degenerative changes in the spine. IMPRESSION: No acute abnormality. DATA REPOSITORY: RADIATION DOSE DELIVERED:
== END 2021-12-17 14:22 ==
PROVIDERS: PCP Nurse Practitioner Family; Visit Provider Emergency Medicine
DX: R05.3 Chronic cough (principal)
CPT/HCPCS: 71046

== ENCOUNTER 2022-03-09 01:03 | Outpatient (CLI) | payer OTHER, SELFPAY | END 2022-03-09 01:04 | disposition home or self-care (01) | LOC: LOS 01:03 | PROVIDERS: PCP Nurse Practitioner Family; Visit Provider Nurse Practitioner Family ==

== ENCOUNTER 2022-03-09 13:07 | Outpatient (CLI) | payer OTHER, SELFPAY ==
[2022-03-09 17:39] LABS: TSH 2.08 uIU/mL (0.36-3.74)
== END 2022-03-09 13:08 | disposition home or self-care (01) ==
LOC: LBO 13:08
PROVIDERS: PCP Nurse Practitioner Family; Visit Provider Nurse Practitioner Family
DX: E03.9 Hypothyroidism, unspecified (principal)
CPT/HCPCS: 36415; 84443

== ENCOUNTER 2022-06-21 11:41 | Outpatient (CLI) | payer OTHER, SELFPAY ==
--- NOTE | 2022-06-21 11:15 | DI.RAD_ITS ---
Exam(s) XR KNEE LT 2V AP,LAT EXAM: XR KNEE LT 2V AP,LAT INDICATION: s/p left TKA. COMPARISON: CR XR KNEE LT 2V AP,LAT from 06/08/2021 TECHNIQUE: 2D digital imaging was performed. Two views. FINDINGS: There has been no change in the alignment of total knee prosthesis or appearance surrounding bone. DATA REPOSITORY: RADIATION DOSE DELIVERED:
== END 2022-06-21 11:42 | disposition home or self-care (01) ==
LOC: DIORS 11:42
PROVIDERS: PCP Nurse Practitioner Family; Referring Provider Nurse Practitioner Family; Visit Provider Physician Assistant
DX: T84.82XD Fibrosis due to internal orthopedic prosthetic devices, implants and grafts, subsequent encounter (principal); Z96.652 Presence of left artificial knee joint; Z47.1 Aftercare following joint replacement surgery
CPT/HCPCS: 73560

== ENCOUNTER 2022-08-30 08:56 | Outpatient (REF) | payer OTHER, SELFPAY ==
--- NOTE | 2022-08-30 08:30 | PAPFT_PTH ---
PATIENT: Mirtha Gaona LOC: [facility] U#:[id number] AGE/SX: 57/F ROOM: RE08/30/[address]: Carolyn Vicente NP : 1965 BED: DIS: 08/30/2022 SPEC #: [id number] RECD: 08/30/22 12:53 STATUS: DARREN REQ #: [id number] JACQUELINE: 08/30/22 08:[address]: Carolyn Vicente NP DEPT: [facility] Cytology RECD BY: Traci Clay ENTERED: 08/30/22 12:53 SP TYPE: PAPFT OTHR DR: Fredrick Schulte NP Tissues: 1 - CX/ENDOCX FOR PAP SMEARS Procedures: PAP THIN PREP/UVM Screening HPV DNA PROBE Comments: [id number]
== END 2022-08-30 08:57 | disposition home or self-care (01) ==
LOC: LBN 08:56
PROVIDERS: PCP Nurse Practitioner Family; Visit Provider Nurse Practitioner Women's Health
DX: Z12.4 Encounter for screening for malignant neoplasm of cervix (principal); Z11.51 Encounter for screening for human papillomavirus (HPV)
CPT/HCPCS: 88142; 87624

== ENCOUNTER 2022-11-08 01:42 | Outpatient (CLI) | payer OTHER, SELFPAY ==
--- NOTE | 2022-11-08 11:45 | DI.MAMMO_ITS ---
Exam(s) MAMMO SCREENING EXAM: MAMMO SCREENING CLINICAL HISTORY: screening TECHNIQUE: Mammograms were interpreted according to the usual protocol including computer analysis w [employer] CAD system, tomosynthesis and C-view imaging. COMPARISON: 2013 through 2021 FINDINGS: The breasts are composed of mainly fatty density , Breast Density category A. No suspicious masses or suspicious microcalcifications are seen. No skin thickening or abnormal axillary lymph nodes are seen. There has been no significant change from prior exams. IMPRESSION: BI-RADS Category 1, Negative mammogram Yearly screening mammography is recommended. Breast Density - Category A, fatty density. A negative radiographic report should not delay biopsy if a dominant or clinically suspicious mass is present. Up to ten percent of cancers are not identified on mammography. A negative report may reinforce clinical impression. Adenosis and dense breasts may obscure an underlying neoplasm. False positive reports average 6 to 10%. Patient will receive a letter notifying them of these results.
== END 2022-11-08 02:02 ==
LOC: DI 01:42
PROVIDERS: PCP Nurse Practitioner Family; Visit Provider Nurse Practitioner Women's Health
DX: Z12.31 Encounter for screening mammogram for malignant neoplasm of breast (principal)
CPT/HCPCS: 77063; 77067

== ENCOUNTER 2023-03-18 01:40 | Outpatient (CLI) | payer OTHER, SELFPAY ==
[2023-03-18 10:13] LABS: Hemoglobin A1C 5.8 % (<5.7)
[2023-03-18 10:43] LABS: Calculated LDL 87 mg/dL (<100); Cholesterol 154 mg/dL (<200); HDL Cholesterol 49 mg/dL (40-60); Triglyceride 94 mg/dL (<150)
== END 2023-03-18 01:41 | disposition home or self-care (01) ==
LOC: LBO 01:41
PROVIDERS: PCP Nurse Practitioner Family; Visit Provider Nurse Practitioner Family
DX: Z13.220 Encounter for screening for lipoid disorders (principal); Z13.1 Encounter for screening for diabetes mellitus; E03.9 Hypothyroidism, unspecified
CPT/HCPCS: 36415; 80061; 83036; 84443

== ENCOUNTER → 2023-08-19 18:44 | Outpatient (CLI) | payer OTHER, SELFPAY ==
--- NOTE | 2023-08-19 14:15 | DI.RAD_ITS ---
Exam(s) XR CHEST 2V PA LATERAL EXAM: XR CHEST 2V PA LATERAL CLINICAL HISTORY: cough/congestion/rhonchi since June R05.9 TECHNIQUE: 2D digital imaging was performed of the chest. Two images were obtained. PA and lateral views were obtained. COMPARISON: CR XR CHEST 2V PA LATERAL from 12/17/2021 FINDINGS: MEDIASTINUM: Normal. HEART: Normal. PULMONARY VASCULATURE: Normal. LUNGS: Clear. PLEURAL SPACE: No pleural effusion or pneumothorax. BONE:Within normal limits for the patient's age. There is again seen a mild right convex curvature o f the midthoracic spine. OTHER FINDINGS:Normal. IMPRESSION: No acute pulmonary findings. DATA REPOSITORY: RADIATION DOSE DELIVERED:
== END ==
PROVIDERS: PCP Nurse Practitioner Family; Visit Provider Nurse Practitioner Family
DX: R05.9 Cough, unspecified (principal)
CPT/HCPCS: 71046

== ENCOUNTER → 2023-11-11 00:07 | Outpatient (CLI) | payer OTHER, SELFPAY ==
--- NOTE | 2023-11-11 08:30 | DI.MAMMO_ITS ---
Exam(s) MAMMO SCREENING EXAM: MAMMO SCREENING CLINICAL HISTORY: screening TECHNIQUE: Bilateral full field digital CC and MLO mammographic images were obtained with 3D tomosyn thesis and utilizing computer aided detection (CAD). COMPARISON: Available for comparison. FINDINGS: Masses/Architectural Distortion: None seen. Microcalcifications: No suspicious pleomorphic-type are seen. Skin Thickening/Nipple Retraction: None. IMPRESSION: 1. No significant interval change with no specific features of malignancy noted. 2. Unless there is more urgent need, screening mammography is recommended, as per [employer] guidelines. BI-RADS Category 1 - Negative Breast Density - Category A - Almost entirely fatty Breast density category C or D implies that the patient has dense breast tissue. Dense breast tissue is very common and is not abnormal but dense breast tissue can make it harder to find cancer on a ma mmogram. Also, dense breast tissue may increase their breast cancer risk. This information about the result of the mammogram report was provided to the patient to raise their awareness. Use this report when you speak with the patient about their risks for breast cancer, which includes their family hist ory. At that time, you may recommend for more screening tests (Ultrasound or MRI) as they might be us eful based on their risk. A negative radiographic report should not delay biopsy if a dominant or clinically suspicious mass is present. Up to ten percent of cancers are not identified on mammography. A negative report may reinforce clinical impression. Adenosis and dense breasts may obscure an underlying neoplasm. False positive reports average 6 to 10%. Patient will receive a letter notifying them of these results.
== END ==
PROVIDERS: PCP Nurse Practitioner Family; Visit Provider Obstetrics & Gynecology
DX: Z12.31 Encounter for screening mammogram for malignant neoplasm of breast (principal)
CPT/HCPCS: 77063; 77067

== ENCOUNTER 2024-03-27 04:54 | Outpatient (CLI) | payer OTHER, SELFPAY ==
[2024-03-27 12:32] LABS: Hemoglobin A1C 5.8 % (<5.7)
[2024-03-27 12:39] LABS: Calculated LDL 82 mg/dL (<100); Cholesterol 146 mg/dL (<200); HDL Cholesterol 49 mg/dL (40-60); TSH (W/Ref FT4) 2.53 uIU/mL (0.36-3.74); Triglyceride 78 mg/dL (<150)
== END 2024-03-27 04:55 | disposition home or self-care (01) ==
LOC: LOS 04:54
PROVIDERS: PCP Nurse Practitioner Family; Visit Provider Nurse Practitioner Family
DX: R73.9 Hyperglycemia, unspecified (principal); Z13.220 Encounter for screening for lipoid disorders; E03.9 Hypothyroidism, unspecified
CPT/HCPCS: 36415; 80061; 83036; 84443

== ENCOUNTER 2024-08-24 15:06 | Outpatient (CLI) | payer OTHER, SELFPAY ==
--- NOTE | 2024-08-24 09:05 | DI.RAD_ITS ---
Exam(s) XR KNEE LT 4V AP,LAT,WILMER,PAT EXAM: XR KNEE LT 4V AP,LAT,WILMER,PAT CLINICAL HISTORY: HISTORY OF L TKA, arthrofibrosis total knee replacement, T84.82XA. TECHNIQUE: 2D digital imaging was performed. Five images were obtained. Merchant's, AP, lateral and PA tunnel views were obtained. COMPARISON: CR XR KNEE LT 2V AP,LAT from 06/08/2021 CR XR KNEE LT 2V AP,LAT from 06/21/2022 FINDINGS: BONES: There are stable post operative changes of a left total knee arthroplasty present. No fractur e or dislocation. There is increased lucency seen around the lateral aspect of the tibial component o f the arthroplasty. JOINTS: The orthopedic hardware is in good position. SOFT TISSUE: Normal. IMPRESSION: Left total knee arthroplasty. Increased lucency around the lateral aspect of the tibial component of the arthroplasty. This can be seen with loosening. Please correlate clinically. DATA REPOSITORY: RADIATION DOSE DELIVERED:
== END 2024-08-24 15:26 ==
LOC: DI 15:07
PROVIDERS: PCP Nurse Practitioner Family; Visit Provider Physician Assistant
DX: T84.82XA Fibrosis due to internal orthopedic prosthetic devices, implants and grafts, initial encounter (principal); Z96.652 Presence of left artificial knee joint
CPT/HCPCS: 73564

== ENCOUNTER 2024-10-12 09:16 | Outpatient (REF) | payer OTHER, SELFPAY ==
--- NOTE | 2024-10-12 09:11 | PAPFT_PTH ---
PATIENT: Mirtha Gaona LOC: [facility] U#:[id number] AGE/SX: 59/F ROOM: RE10/12/[address]: Fatou Huynh MD : 1965 BED: DIS: 10/12/2024 SPEC #: [id number] RECD: 10/12/24 13:01 STATUS: DARREN RENavin #: [id number] JACQUELINE: 10/12/24 09:[address]: Fatou Huynh DEPT: [facility] Cytology RECD BY: Traci Clay ENTERED: 10/12/24 13:02 SP TYPE: PAPFT SAMRA DR: Fredrick Schulte, KOBY Tissues: 1 - CX/ENDOCX FOR PAP SMEARS Procedures: PAP THIN PREP/UVM Screening HPV DNA PROBE Comments: [id number] (HPV 16 & 18/45)
== END 2024-10-12 09:17 | disposition home or self-care (01) ==
LOC: LBN 09:16
PROVIDERS: PCP Nurse Practitioner Family; Visit Provider Obstetrics & Gynecology
DX: Z12.31 Encounter for screening mammogram for malignant neoplasm of breast (principal); K42.9 Umbilical hernia without obstruction or gangrene; Z01.419 Encounter for gynecological examination (general) (routine) without abnormal findings
CPT/HCPCS: 88142; 87624

== ENCOUNTER 2024-11-12 01:34 | Outpatient (CLI) | payer OTHER, SELFPAY ==
--- NOTE | 2024-11-12 08:10 | DI.MAMMO_ITS ---
Exam(s) MAMMO SCREENING EXAM: MAMMO SCREENING CLINICAL HISTORY: screening,z12.31 TECHNIQUE: Mammograms were interpreted according to the usual protocol including computer analysis w [employer] CAD system, tomosynthesis and C-view imaging. COMPARISON: 2015 through 2023 FINDINGS: The breasts are composed of mainly fatty density , Breast Density category A. No suspicious masses or suspicious microcalcifications are seen. No skin thickening or abnormal axillary lymph nodes are seen. There has been no significant change from prior exams. IMPRESSION: BI-RADS Category 1, Negative mammogram Yearly screening mammography is recommended. Breast Density - Category A, fatty density. A negative radiographic report should not delay biopsy if a dominant or clinically suspicious mass is present. Up to ten percent of cancers are not identified on mammography. A negative report may reinforce clinical impression. Adenosis and dense breasts may obscure an underlying neoplasm. False positive reports average 6 to 10%. Patient will receive a letter notifying them of these results.
== END 2024-11-12 01:54 ==
LOC: DI 01:34
PROVIDERS: PCP Nurse Practitioner Family; Visit Provider Obstetrics & Gynecology
DX: Z12.31 Encounter for screening mammogram for malignant neoplasm of breast (principal); R92.313 Mammographic fatty tissue density, bilateral breasts
CPT/HCPCS: 77063; 77067

== ENCOUNTER 2025-04-04 01:31 | Outpatient (CLI) | payer OTHER, SELFPAY ==
[2025-04-04 08:58] LABS: Hemoglobin A1C 5.4 % (<5.7)
[2025-04-04 09:15] LABS: Calculated LDL 93 mg/dL (<100); Cholesterol 158 mg/dL (<200); HDL Cholesterol 51 mg/dL (>or=50); TSH (W/Ref FT4) 1.26 uIU/mL (0.36-3.74); Triglyceride 71 mg/dL (<150)
== END 2025-04-04 01:32 | disposition home or self-care (01) ==
LOC: LBO 01:31
PROVIDERS: PCP Nurse Practitioner Family; Visit Provider Nurse Practitioner Family
DX: Z13.1 Encounter for screening for diabetes mellitus (principal); Z13.220 Encounter for screening for lipoid disorders; E03.9 Hypothyroidism, unspecified
CPT/HCPCS: 36415; 80061; 83036; 84443

== ENCOUNTER 2025-07-30 06:08 | Day surgery (SDC) | payer OTHER, SELFPAY ==
--- NOTE | 2025-07-29 18:35 | ANES.PREOP_ITS ---
General Info Date of Service Date Performed: 07/30/25 Height: 5 ft 10.5 in Weight: 109.883 kg Body Mass Index (BMI): 34.2 Surgical Procedure: Operation Date: 07/30/25 07:55 Proposed Procedure Side Surgeon p Hernia Umbilical Laparoscopic w/Mesh Tyrell Felipe MD Meds Allergies and Home Medications Allergies Allergy/AdvReac Type Severity Reaction Status Date / Time erythromycin base Allergy Intermediate TROUBLE Verified 07/26/25 14:01 BREATHING hydromorphone HCl (From Allergy Intermediate HIVES Verified 07/26/25 14:01 Dilaudid) cephalexin Allergy Unknown unknown Verified 07/26/25 14:01 chlordiazepoxide Allergy Unknown unknown Verified 07/26/25 14:01 codeine phosphate (From Allergy Unknown HIVES Verified 07/26/25 14:01 Cheratussin AC) guaifenesin (From Allergy Unknown HIVES Verified 07/26/25 14:01 Cheratussin AC) morphine AdvReac Severe VOMITING Verified 07/26/25 14:01 WALNUTS Allergy Severe DIFFICULTY Uncoded 07/26/25 14:01 BREATHING Home Medication Medication Instructions Recorded cetirizine 10 mg tablet (Zyrtec) 10 mg PO HS PRN 07/03 ibuprofen 600 mg tablet 600 mg PO TID PRN pain #60 t abs 10/21/20 sumatriptan succinate 100 mg 100 mg PO PRN #27 tab-cap s 03/14/23 tablet (Imitrex) fluocinonide-emollient 0.05 % 1 applic topical DAILY P RN rash 03/21/24 topical cream (Fluocinonide-E) #60 grams olopatadine 0.2 % eye drops 1 drp ophthalmic (eye) DINA LY #2.5 01/23/25 mL tirzepatide (weight loss) 15 15 mg (0.5 mL) subcut QWE EK #6 mL 01/23/25 mg/0.5 mL subcutaneous pen injector levothyroxine 50 mcg tablet 50 mcg PO DAILY #90 tab-ca ps 03/20/25 (Synthroid) Current Visit Medications: Current Medications Generic Name Dose Route Start Last Admin Trade Name Freq PRN Reason Stop Dose Admin Ringer's Solution 1,000 mls @ 80 mls/hr 07/30/25 06:00 IV 07/30/25 23:59 INFUSION LIVIA IV Miscellaneous Supplies 1 each 07/30/25 06:00 Iv Access IV 07/30/25 23:59 DIRECTED LIVIA Sodium Chloride 0 ml 07/30/25 06:00 Normal Saline Flush 10 Ml Syr IV 07/30/25 23:59 PRN PRN Sodium Chloride 0 ml 07/30/25 06:00 Normal Saline 10 Ml Vial IJ 07/30/25 23:59 DIRECTED PRN Sterile Water 0 ml 07/30/25 06:00 Water,Injection,Sterile 10 Ml Vial IJ 07/30/25 23:59 DIRECTED PRN PFSH Active Problems Active Problems: Problem Status Onset Code Right foot pain Acute M79.671 Umbilical hernia Acute K42.9 Sprain of lateral collateral ligament of left knee Acute S83.422A Bilateral knee pain Acute M25.561, M25.562 Bilateral hearing loss Acute H91.93 Cough Acute R05.9 Bilateral shoulder pain Acute M25.511, M25.512 Actinic keratosis Acute L57.0 Elevated blood sugar Acute R73.9 Sleep apnea Chronic 10/18/14 G47.30 Seborrheic dermatitis of scalp Chronic 05/09/18 L21.9 Obesity Chronic E66.9 Migraine Chronic G43.909 Idiopathic scoliosis Chronic M41.20 Hypothyroid Chronic 08/09/16 E03.9 Herpes Chronic 09/28/17 B00.9 Cervical herniated disc Chronic 08/20/15 M50.20 Allergic rhinitis Chronic J30.9 Medical History Medical History Postmenopausal Greater trochanteric bursitis of left hip Injection: 08/22/2020 History of skin cancer Psoriasis Surgical History Surgical History History of total left knee replacement (TKR) (06/18/20) History of mandibular surgery 1986 Arthrofibrosis of total knee replacement LEFT S/P Arthroscopic lysis of adhesions with manipulation: 10/21/2020 History of arthroscopy of knee History of bilateral ligation of fallopian tubes History of cataract extraction (06/25/14) History of cataract removal with insertion of prosthetic lens History of surgical procedure Status post right knee replacement (05/09/15) S/P arthroscopic synovectomy: 01/30/2020 Ligation of fallopian tube JAW SURGERY Extraction of cataract (~2012) Arthroplasty of knee 2004; lateral release and chondromalacia patella. 09/02/14; Total right knee Tobacco Smoking/Tobacco Use Status: Never Passive smoking exposure: No Second hand exposure: No Alcohol Alcohol Intake: current Alcohol intake frequency: holidays/special occasions only Alcohol type: hard liquor Substance Use Substance use: Never Substance use type: does not use Prental History History 3 Para 2 Hx # Term Pregnancies Multiple births Hx # Pregnancies Ectopic pregnancies AB induced Hx Number of Living Children AB spontaneous Anesthesia Assessment and Plan Anesthesia History Personal History: No History of Anesthesia Complications Family History: No Family History of Anesthesia Complications Exercise Tolerance Exercise Tolerance: Metabolic Equivalents>4 Cardiac & Pulmonary Exam Cardiac Exam: Normal S1/S2 Heart Sounds Pulmonary Exam: Clear Bilateral Breath Sounds Implantable Cardiac Device Does patient have a Pacemaker or an ICD?: No Airway Exam Known Difficult Airway: No Mallampati Class: 2 Mouth Opening: Narrow (< 3cm) Thyromental Distance: Less than 3 cm Neck Range of Motion: Limited ROM Neck Circumference: Thick Teeth Condition: Normal Dentition ASA Classification ASA Score: ASA 2 Emergency Case?: No NPO Status NPO Status: NPO Clears >2 hours, Solids >8 hours Anesthesia Plan Resuscitation Status: Full Code Anesthesia Technique: General Anesthesia Airway Planned: Endotracheal Tube Monitors Used: Standard Monitors Preoperative Comments:: 60 yo for lap hernia repair. Sig PMHx: ISABEL (CPAP), hypothyroid (on replacement), cervical pain/herniated disk, elevated BMI (tirzepatide). Never smoker, occ EtOH. Previous Anes: - knee scope, midaz 5 mg, chloro spinal, prop sedation, no issues. - TKA, chloro spinal with 25 pencil point, prop/dexmed sedation. no issues. - Knee scope, chloro spinal with 22 cutting, midaz. PDPH
--- NOTE | 2025-07-29 19:27 | W.PM.DSUDISC ---
Date of service: 07/30/25 Discharge Plan Disposition Patient Disposition: Home Condition: Good Discharge Details Reason For Visit: umbilical hernia repair Attending Provider: Tyrell Felipe Primary Care Provider: Fredrick Schulte Home Meds and New Rx's Prescriptions: New tramadol 50 mg tablet 50 mg PO Q8H PRNQty: 9 0RF Rx Instructions: Take 1 tablet by mouth up to every 8 hours if needed for severe pain. Continued cetirizine [Zyrtec] 10 mg tablet 10 mg PO HS PRN sumatriptan succinate [Imitrex] 100 mg tablet 100 mg PO PRN Qty: 27 4RF Rx Instructions: may use generic (insurance will not cover name brand) tirzepatide (weight loss) 15 mg/0.5 mL pen injector 15 mg subcut QWEEK Qty: 6 3RF olopatadine 0.2 % drops 1 drp ophthalmic (eye) DAILY Qty: 2.5 1RF fluocinonide-emollient [Fluocinonide-E] 0.05 % cream 1 applic Topical DAILY PRN (Reason: rash) Qty: 60 4RF Rx Instructions: Apply to affected area levothyroxine [Synthroid] 50 mcg tablet 50 mcg PO DAILY Qty: 90 3RF ibuprofen 600 mg tablet 600 mg PO TID PRN (Reason: pain) Qty: 60 2RF Discharge Instructions Instructions: Abdominal Hernia Repair, Laparoscopic Surgery Additional Instructions: 1. Resume all of your regular medications. 2. Use ice packs over the incision and around your bellybutton to help with postoperative pain and swelling.. 3. Alternate [id number] Tylenol and ibuprofen every 6 hours for the first 2 days. Then use them as needed. Use the prescription for tramadol if needed for more severe pain.. 4. Leave bandages in place for 24 hours, then remove. 5. Shower with warm soapy water. Pat dry. Replace Band-Aids if you find that most comfortable. 6. No soaking or tub baths until I see you in the office. 7. No heavy lifting until I see you in the office. 8. Call the office (or go directly to the emergency room after hours) if you notice any of the following: Develop chills (warm to touch), or if you have a thermometer and your temperature is above 101 Difficulty breathing or difficultly swallowing Persistent vomiting Any bleeding – exceeding one tablespoon 9. Call your physician if the site where your intravenous was started becomes red, swollen, painful, and warm to touch. Stand Alone Forms: Portal Information Activity:: no heavy lifting Remove Dressings/Wound Care:: 24 hours Shower/Bathe:: 24 hours Diet:: As Tolerated Discharge Orders Discharge Orders: Discharge Order (Routine); Ordered 07/29/25 Ordered By: Tyrell Felipe DS: Diagnosis Discharge Diagnosis (1) Umbilical hernia: Status: Acute Asessment and Plan: Tell patient postoperative follow-up
--- NOTE | 2025-07-29 19:28 | W.PM.OP ---
Operative Note Operative Note PRE-OP DIAGNOSIS: umbilical hernia POST-OP DIAGNOSIS: same PROCEDURE: Laproscopic umbilical hernia repair SURGEON: Tyrell Felipe COTTON INSPECTOR: Tiara Gacria ANESTHESIA TYPE: Local By Surgeon and General LMA/ETT Refer to Anesthesia Record ESTIMATED BLOOD LOSS: 25 PATHOLOGY: none sent COMPLICATIONS: None Patient was transported to: PACU Patient's condition: stable Implants: [address] hernia mesh Indications: Teena is a 60-year-old woman with symptomatic umbilical hernia Findings: Fat-containing umbilical hernia Procedure Description: I met with Teena in the preoperative area, and we reviewed the plan for laparoscopic umbilical hernia repair. She had the chance to ask any other questions. We then moved back to the operating room, and she was assisted onto the OR table. General endotracheal anesthesia was initiated in usual fashion, and the anterior abdominal wall was then prepped and draped. I anesthetized the skin in the left upper quadrant in the area of Vo's point. I made a 5 mm incision. Then, using an optical viewing port, establish pneumoperitoneum. There is no evidence of any injury from the advancement of the port. There appeared to be a fat-containing umbilical hernia with some involvement of greater omentum. Band was placed left side down, and a tap block using local anesthetic mixed with Exparel was performed under the vision of the laparoscope. The right side was then placed downward, and the left side was anesthetized. I then anesthetized the skin in the left mid abdomen, and made a 12 mm incision through which I advanced a 12 mm port. Using the LigaSure device, I carefully dissected the edge of the fascia, allowing me to reduce the greater omentum from the hernia. There was some preperitoneal fat contained as well. Hernia sac was all excised, and the fascial edge was taken back to normal healthy tissue. I did have to dissect away some of the falciform ligament for an appropriate landing zone of the mesh. The hernia defect is about 2.5 x 2.5 cm. I then anesthetized the skin on the lower portion of the umbilicus and made a small skin incision. I dissected a small pocket, then closed the defect with [id number] PDS suture. Another simple interrupted suture was used to reinforce this. With the fascial defect closed, I selected an [address] hernia mesh for underlying reinforcement. This was advanced through the 12 mm port, and brought up to the anterior abdominal wall using the echo 2 positioning system. It was nicely seated and approximated against the anterior abdominal wall with a flat orientation. There was excellent overlap of the fascial closure. This was affixed in place with a surgical tacking device. The positioning system was removed by way of the 12 mm port. Everything looked hemostatic. 12 mm port was removed, and the site was closed with a 0 Vicryl suture using a Misael Baron suture passer. The 5 mm port was removed after the pneumoperitoneum was released. Skin was irrigated, and reapproximated with interrupted absorbable sutures. Bandages were applied, Teena was extubated, and transferred to the recovery unit. Date of Procedure: 07/30/25
[2025-07-30] VITALS (26 sets, daily range): BP systolic 78–121; BP diastolic 39–65; PULSE 68–79; RESP 8–19; TEMP 35.9–36.5; O2SAT 92–98; BMI 34.2
[2025-07-30] MEDS: Lactated Ringers 1,000 ML 80 ML IV (07:10)
[2025-07-30] MEDS: Acetaminophen 500 MG TAB 1000 MG PO (07:19)
[2025-07-30] MEDS: Celecoxib 200 MG CAP PO (07:19)
[2025-07-30] MEDS: Gabapentin 300 MG CAP 600 MG PO (07:19)
[2025-07-30] MEDS: Bupivacaine 0.5% Pres-Free 30 ML VIAL (08:43)
[2025-07-30] MEDS: Bupivacaine LIPOSOME/PF 133 MG/10 ML VIAL IJ (08:44)
--- NOTE | 2025-07-30 09:46 | W.ANESPOSTOP ---
Postoperative Evaluation Date, Time and Location Date Performed: 07/30/25 Time Performed: 09:46 Patient Location: PACU Vital Signs Most Recent Imported Vital Signs: Most Recent Vital Signs Temp Pulse Resp BP Pulse Ox 36.5 C 70 17 108/39 L 94 07/30/25 09:30 07/30/25 09:40 07/30/25 09:40 07/30/25 09:30 07/30/25 09:40 Pain Score Most Recent Pain Score: Most Recent Pain Score Pain Level 3 07/30/25 09:40 Assessment Mental Status: Arousable with meaningful communication Airway and Respiratory Function: Patent airway with normal (patient baseline) respiratory exam Cardiovascular Function: Hemodynamically Stable Hydration Status: Adequately Hydrated Nausea & Vomiting: No Nausea or Vomiting Pain: Pain is tolerable per patient Peripheral Nerve Block: Patient did not receive a nerve block
[2025-07-30] MEDS: fentaNYL 100 MCG/2 ML VIAL IVP ×2 (09:48→10:03)
[2025-07-30] MEDS: traMADol 50 MG TAB PO (11:01)
== END 2025-07-30 12:00 | disposition home or self-care (01) ==
LOC: SUR 06:08
PROVIDERS: PCP Nurse Practitioner Family; Visit Provider Surgery
PROC: (CPT 49650; principal; 2025-07-30 07:45)
DX: K42.9 Umbilical hernia without obstruction or gangrene (principal); G47.33 Obstructive sleep apnea (adult) (pediatric)
CPT/HCPCS: 49591; C1781; J0665; J0666; J0690; J1100; J1805; J2371; J2405; J2704; J3010; J3475

== ENCOUNTER → 2025-09-09 00:35 | Outpatient (CLI) | payer OTHER, SELFPAY ==
--- NOTE | 2025-09-09 | DI.MRI_ITS ---
Exam(s) MR LOWER JOINT RT WO EXAM: MR LOWER JOINT RT WO CLINICAL HISTORY: CHRONIC LAT FOOT AND ANKLE PAIN,PERONEAL TENDINITIS,M76.71,PALPPATORY TECHNIQUE: Multiplanar multisequence MRI was performed without intravenous contrast. COMPARISON: DX POD Foot, R 3V (POD4) from 03/15/2025 FINDINGS: SKIN: No evidence of ulcer nor subcutaneous tract. BONES/JOINTS: No evidence of fracture nor bone contusion. Subarticular signal abnormality consistent with degenerative changes are evident at the 2nd and 3rd tarsometatarsal joints. Main Lisfranc ligament appears intact. There is a slightly increased amount of fluid in the ankle tibiotalar and subtalar joints. The talar dome appears unremarkable. The ankle mortise is maintained. There is no evidence of para-articular ganglion.There is no evidence of osseous tarsal coalition. LIGAMENTS: There is thinning of the anterior syndesmotic tibiofibular ligament no high-grade tear.. The posterior syndesmotic tibiofibular ligament appears intact. Anterior talofibular ligament appears intact. Posterior talofibular ligament intact. On the medial aspect of the ankle the deltoid ligament appears intact. SINUS TARSI: There is no loss of the normal fat signal in this space. Interosseous ligament is intact. There is no evidence of sinus tarsi ganglion cyst. ANTEROLATERAL GUTTER:There is no abnormal signal/abnormal tissue in this space. MUSCULOTENDINOUS STRUCTURES: Achilles tendon: Some increased signal within the distal 2.5 cm consistent with tendinopathy. No evidence of high-grade tear. No significant thickening of the tendon itself. Plantar fascia: Unremarkable. No evidence of tear, abnormal thickening, nor abnormal nodularity. There is, however, small focus of increased intraosseous signal in the undersurface of the calcaneus at this level. Anterior Extensor tendons: Unremarkable. Medial Tendons: Posterior Tibialis: Unremarkable. No tear or tenosynovitis evident. Flexor Digitorum longus: Unremarkable. No tear or tenosynovitis evident. Flexor Hallicus longus: Unremarkable. No tear or tenosynovitis evident. Lateral Tendons: Peroneus longus: Unremarkable. No tear nor tenosynovitis evident. Peroneus brevis:Unremarkable. No tear nor tenosynovitis evident. SOFT TISSUES: Unremarkable. OTHER FINDINGS: None. IMPRESSION: 1. There is mild thinning of the anterior tibial fibular ligament but no high- grade tear. The posterior tibial fibular ligament appears unremarkable. There is no tear of the anterior and posterior talofibular ligaments. 2. No fractures. There are subarticular degenerative changes in the thicken and 3rd tarsometatarsal joints. 3. There is Achilles tendinitis/tendinosis involving the distal 2.5 cm. No high- grade tear and no chronic thickening of this structure evident. DATA REPOSITORY:
--- NOTE | 2025-09-09 17:49 | DI.VRAD_ITS ---
PROCEDURE INFORMATION: Exam: MR Right Lower Extremity Joint Without Contrast; Ankle Exam date and time: 09/09/2025 2:38 PM Age: 60 years old Clinical indication: Pain; Ankle and foot; Right; Additional info: Old injury, lateral ankle and hindfoot pain TECHNIQUE: Imaging protocol: Magnetic resonance imaging of the right lower extremity without contrast. Exam focused on the ankle. Total images: 488 COMPARISON: DX POD Foot, R 3V (POD4) 03/15/2025 8:43 AM FINDINGS: Bones/joints: Small tibiotalar and subtalar joint effusions. STIR hyperintensity within the base 3rd metatarsal. LIGAMENTS: Distal tibiofibular syndesmosis: Intact. Anterior talofibular ligament: Intact. Posterior talofibular ligament: Intact. Calcaneofibular ligament: Intact. Deltoid ligament complex: Intact. TENDONS: Flexor tendons of foot: Unremarkable as visualized. Tibialis posterior tendon: Unremarkable as visualized. Peroneal tendons: Unremarkable as visualized. Extensor tendons of foot: Unremarkable as visualized. Tibialis anterior tendon: Unremarkable as visualized. Achilles tendon: T2 stir increased signal involving the distal 3 cm of the Achilles tendon. Tarsal canal (Sinus tarsi): Unremarkable. Tarsal tunnel: Unremarkable. Soft tissues: Unremarkable. Plantar fascia: Plantar fascia is intact. IMPRESSION: 1. Consistent with partial interstitial tearing versus tendinitis of the Achilles tendon. 2. Third metatarsal base edema which may be degenerative or posttraumatic. 3. No additional tear. Dictated and Authenticated by: Mariano Cobb MD. Orderin LEON WYNNE MD
== END ==
LOC: DI 00:35
PROVIDERS: PCP Nurse Practitioner Family; Visit Provider Podiatrist Foot & Ankle Surgery
DX: M76.71 Peroneal tendinitis, right leg (principal)
CPT/HCPCS: 73721